=== PATIENT | female | born 1960 | race Two or more races ===

== ENCOUNTER 2020-11-12 23:34 | Emergency (ER) | payer OTHER, SELFPAY ==
[2020-11-12 23:53] VITALS: BP 113/57; PULSE 96; RESP 18; TEMP 36.8; O2SAT 96; BMI 24.5
--- NOTE | 2020-11-13 | ECG_ITS ---
Test Reason : PALPITATIONS Blood Pressure : / mmHG Vent. Rate : 093 BPM Atrial Rate : 093 BPM P-R Int : 140 ms QRS Dur : 072 ms QT Int : 382 ms P-R-T Axes : 055 010 039 degrees QTc Int : 474 ms Normal sinus rhythm Normal ECG When compared to the previous EKG of No significant changes seen Referred By: Janine Cotto Electronically Signed By:TRICIA ROSA MD
--- NOTE | 2020-11-13 01:06 | PC.NURSE ---
per md no need for troponin.
--- NOTE | 2020-11-13 01:06 | ED.GENADULT ---
HPI - General Adult General Chief complaint: General Medical Stated complaint: High Blood Pressure Time Seen by Provider: 11/13/20 00:56 Source: patient and home health clinical supervisor Mode of arrival: ambulatory History of Present Illness HPI narrative: This is a 59-year-old female with history of asthma and presents with palpitations that she states was associated with ?high blood pressure? but denies any associated dizziness, sweating, nausea, or chest pain. She denies any recent travel, this breath, fevers, chills, GI or symptoms. Related Data Previous Rx's Medication Instructions Recorded gabapentin 300 mg capsule 300 mg PO TID #90 cap 06/30/20 risperidone 0.25 mg tablet 0.25 mg PO DAILY #90 tab 06/30/20 lisinopril 40 mg tablet 40 mg PO DAILY #30 tab 07/16/20 loratadine 10 mg tablet 10 mg PO DAILY #30 tab 08/15/20 omeprazole 20 mg capsule,delayed 20 mg PO DAILY #30 cap 08/15/20 release amlodipine 5 mg tablet 5 mg PO DAILY #30 tab 08/21/20 tramadol 50 mg tablet 50 mg PO Q8H PRN 30 Days #90 tab 09/25/20 benztropine 0.5 mg tablet 0.5 mg PO BEDTIME #90 tab 11/01/20 Allergies Allergy/AdvReac Type Severity Reaction Status Date / Time aspirin [ASPIRIN] Allergy Unknown SWELLING Verified 11/12/20 23:53 penicillin V Allergy Unknown swelling Verified 11/12/20 23:53 Penicillins [PENICILLINS] Allergy Unknown SWELLING Verified 11/12/20 23:53 Review of Systems Review of Systems: Pertinent positives and negatives as stated in HPI 10 point review of systems is otherwise negative. [facility] Past Medical History Source: nursing notes reviewed Medical History Polyarthralgia Social History Social History Smoking Status: Never smoker Use of substances other than those prescribed or required for medical reasons: No Advance Directives: No Physical Exam Vital Signs: Vital Signs: Last Vital Signs Temp 98.3 F 11/12/20 23:53 Pulse 87 11/13/20 02:00 Resp 16 11/13/20 02:00 BP 124/64 11/13/20 02:00 Pulse Ox 93 11/13/20 02:00 Body Mass Index 24.5 VITAL SIGNS: Reviewed. GENERAL: Well developed, well nourished, in no acute distress. HEAD: Normocephalic/atraumatic, EYES: PERRLA, EOMI NOSE: Nares patent bilateral OROPHARYNX: no oral lesions noted, posterior pharynx clear NECK: Supple, no adenopathy LUNGS: Normal breath sounds. No adventitious sounds or accessory muscle use. SpO2<96> CARDIOVASCULAR: Regular rate and rhythm without noted murmurs, no JVD or lower extremity edema. ABDOMEN: Soft, non-tender, non-distended with bowel sounds. NEUROLOGIC: Alert and oriented x 4. Course Course Course Narrative: This is a 59-year-old female with history and clinical presentation of palpitations, will evaluate for infection, anemia, arrhythmia. Review of all investigations is negative for any acute findings that may have contributed to patient's sensation of palpations. Although there is a noted leukocytosis this seems to be consistent with prior findings and is not consistent with a left shift, history of fever. The results and findings were discussed with her at bedside and she was discharged home in stable condition with recommendations to follow-up with her primary care provider for re-evaluation and outpatient management as indicated. Medical Decision Making Lab Data Result diagrams: 11/13/20 01:15 11/13/20 01:15 Labs: Lab Results 11/13/20 11/13/20 11/13/20 Range/Units 01:15 01:15 01:15 WBC 16.1 H (4.8-10.8) X10*3/uL RBC 3.67 L (4.20-5.50) X10*6/uL Hgb 13.1 (12.0-16.0) g/dl Hct 35.6 L (37-47) % MCV 97.0 (80-98) fL MCH 35.7 H (27.0-33.0) pg MCHC 36.8 H (31.0-35.0) g/dl RDW 13.2 (11.0-16.0) % Plt Count 284 (160-400) X10*3/uL MPV 9.1 L (9.4-12.3) fL Immature Gran % (Auto) 0.4 (0.0-0.4) % Neut % (Auto) 62.1 (45-73) % Lymph % (Auto) 28.5 (20-40) % [place] % (Auto) 7.1 (2-11) % Eos % (Auto) 1.2 (0-4) % Baso % (Auto) 0.7 (0-2) % Lymph # (Auto) 4.6 (1.2-4.9) X10*3/uL [place] # (Auto) 1.1 (0.1-1.2) X10*3/uL Eos # (Auto) 0.2 (0.0-0.4) X10*3/uL Baso # (Auto) 0.1 (0.0-0.2) X10*3/uL Abs Immat Gran (auto) 0.07 H (0.00-0.03) X10*3/uL Absolute Neuts (auto) 10.0 H (2.0-8.3) X10*3/uL Absolute Nucleated RBC 0.000 (0.0-0.012) X10*3/uL Nucleated RBC % (auto) 0.0 (0.0-0.2) /100WBC Sodium 140 (135-145) mmol/L Potassium 4.0 (3.3-5.1) mmol/L Chloride 104 (96-108) mmol/L Carbon Dioxide 24 (22-29) mmol/L Anion Gap 16 (12-20) BUN 16 (9-16) mg/dL Creatinine 1.02 (0.5-1.4) mg/dL Estim Creat Clear Calc 43.8 Estimated GFR 55 Random Glucose 171 H (60-115) mg/dL Calcium 8.7 (8.4-10.2) mg/dL Total Bilirubin 0.4 (0.0-1.0) mg/dL AST 18 (5-31) U/L ALT 16 (0-31) U/L Alkaline Phosphatase 149 H (39-117) U/L Total Protein 7.6 (6.5-8.0) g/dL Albumin 4.1 (3.5-5.0) g/dL Urine Color YELLOW Urine Appearance CLEAR Urine pH 5.5 (5.0-8.0) Ur Specific [place] >= 1.030 H (1.005-1.025) Urine Protein NEG (NEG-TRACE) MG/DL Urine Glucose (UA) NEG (NEG) MG/DL Urine Ketones NEG (NEG) MG/DL Urine Blood 1+ H (NEG) Urine Nitrite NEG (NEG) Ur Leukocyte Esterase NEG (NEG) Urine RBC 1-4 (0) /HPF Urine WBC 0-2 (0-4) /HPF Ur Squamous Epith Cells 2+ /LPF Urine Bacteria TRACE /LPF Urine Mucus 2+ /LPF ECG Data Attestation: I personally reviewed and interpreted this ECG as follows: Prior ECG tracings: available for review (02/24/2016 no acute changes on comparison.) Interpretation: Normal sinus rhythm, HR-93, no evidence of acute ischemia, WA/QRS/QTC are within normal limits Discharge Plan Discharge Clinical Impression: Heart palpitations Patient Disposition: Home, Self-Care Instructions: Heart Palpitations (ED) Additional Instructions: Reanude todos los medicamentos caseros seg?n lo prescrito. Lydia un seguimiento con owen proveedor de atenci?n primaria llamando al consultorio por la ma?arnulfo y estableciendo dotty chikis para dotty reevaluaci?n. No dude en volver al servicio de urgencias si desarrolla alg?n empeoramiento bisi de gayathri s?ntomas. Prescriptions: No Action gabapentin 300 mg capsule 300 mg PO TID Qty: 90 RF: 6 risperidone 0.25 mg tablet 0.25 mg PO DAILY Qty: 90 RF: 3 lisinopril 40 mg tablet 40 mg PO DAILY Qty: 30 RF: 6 loratadine 10 mg tablet 10 mg PO DAILY Qty: 30 RF: 2 omeprazole 20 mg capsule,delayed release(DR/EC) 20 mg PO DAILY Qty: 30 RF: 2 amlodipine 5 mg tablet 5 mg PO DAILY Qty: 30 RF: 3 tramadol 50 mg tablet 50 mg PO Q8H PRN (Reason: pain) 30 Days Qty: 90 RF: 0 benztropine 0.5 mg tablet 0.5 mg PO BEDTIME Qty: 90 RF: 1 Referrals: Physician,Unknown [Primary Care Provider] - 2 days Print Language: Yakut
[2020-11-13 01:20] LABS: MANUAL DIFF FLAG NO
[2020-11-13 01:21] LABS: Basophils Absolute Auto 0.1 X10*3/uL (0.0-0.2); Basophils Percent Auto 0.7 % (0-2); Eosinophils Absolute Auto 0.2 X10*3/uL (0.0-0.4); Eosinophils Percent Auto 1.2 % (0-4); Hematocrit 35.6 % (37-47); Hemoglobin 13.1 g/dl (12.0-16.0); Imm Gran Abs Auto 0.07 X10*3/uL (0.00-0.03); Imm Gran Pct Auto 0.4 % (0.0-0.4); Lymphocytes Absolute Auto 4.6 X10*3/uL (1.2-4.9); Lymphocytes Percent Auto 28.5 % (20-40); Mean Corpuscular HGB Conc 36.8 g/dl (31.0-35.0); Mean Corpuscular Hemoglobin 35.7 pg (27.0-33.0); Mean Platelet Volume 9.1 fL (9.4-12.3); Monocytes Absolute Auto 1.1 X10*3/uL (0.1-1.2); Monocytes Percent Auto 7.1 % (2-11); Neutrophils Percent Auto 62.1 % (45-73); Platelet Count 284 X10*3/uL (160-400); Red Blood Count 3.67 X10*6/uL (4.20-5.50); Red Cell Distribution Width 13.2 % (11.0-16.0); White Blood Count 16.1 X10*3/uL (4.8-10.8)
[2020-11-13 01:23] LABS: Appearance Urine CLEAR; Color Urine YELLOW; Glucose Urine UA NEG (NEG); Leukocyte Esterase Urine NEG (NEG); Nitrite Urine NEG (NEG); PH 5.5 (5.0-8.0); Specific Gravity - Urine >= 1.030 (1.005-1.025); Urine Blood 1+ (NEG); Urine Ketones NEG (NEG); Urine Protein NEG (NEG-TRACE)
[2020-11-13 01:35] LABS: Bacteria Urine TRACE /LPF; Mucus Urine 2+ /LPF; Squamous Epithelial Cell Urine 2+ /LPF; WBC Urine 0-2 /HPF (0-4)
[2020-11-13 02:00] VITALS: BP 124/64; PULSE 87; RESP 16; O2SAT 93
[2020-11-13 02:29] LABS: Alanine Aminotransferase 16 U/L (0-31); Albumin Level 4.1 g/dL (3.5-5.0); Alkaline Phosphatase 149 U/L (39-117); Anion Gap 16 (12-20); Aspartate Amino Transferase 18 U/L (5-31); Bilirubin Total 0.4 mg/dL (0.0-1.0); Blood Urea Nitrogen 16 mg/dL (9-16); Calcium 8.7 mg/dL (8.4-10.2); Carbon Dioxide 24 mmol/L (22-29); Chloride 104 mmol/L (96-108); Creatinine Clr Calc Pharmacy 43.8; Estimated Glomerular Filt Rate 55; Glucose Random 171 mg/dL (60-115); Sodium 140 mmol/L (135-145); Total Protein 7.6 g/dL (6.5-8.0)
== END 2020-11-13 03:29 | disposition home or self-care (01) ==
PROVIDERS: Emergency Provider Student in an Organized Health Care Education/Training Program
DX: R00.2 Palpitations (principal)
CPT/HCPCS: 36415; 80053; 81001; 85025; 93005; 99283; 99284

== ENCOUNTER 2021-04-25 11:02 | Outpatient (REF) | payer OTHER, SELFPAY ==
[2021-04-25 11:52] LABS: Hematocrit 37.3 % (37-47); Hemoglobin 12.7 g/dl (12.0-16.0); Mean Corpuscular Volume 96.9 fL (80-98); Mean Platelet Volume 9.3 fL (9.4-12.3); Platelet Count 323 X10*3/uL (160-400); Red Blood Count 3.85 X10*6/uL (4.20-5.50); Red Cell Distribution Width 13.2 % (11.0-16.0); White Blood Count 13.5 X10*3/uL (4.8-10.8)
[2021-04-25 12:03] LABS: Estimated Average Glucose 160 mg/dL; Hemoglobin A1c % 7.2 %
[2021-04-25 12:25] LABS: Alanine Aminotransferase 20 U/L (0-31); Albumin Level 4.1 g/dL (3.5-5.0); Alkaline Phosphatase 129 U/L (39-117); Anion Gap 15 (12-20); Aspartate Amino Transferase 18 U/L (5-31); Bilirubin Total 0.3 mg/dL (0.0-1.0); Blood Urea Nitrogen 12 mg/dL (9-16); Calcium 9.3 mg/dL (8.4-10.2); Carbon Dioxide 26 mmol/L (22-29); Chloride 104 mmol/L (96-108); Cholesterol 200 mg/dL; Estimated Glomerular Filt Rate 54; Glucose Fasting 153 mg/dL (60-99); HDL Cholesterol 35 mg/dL; Potassium 4.5 mmol/L (3.3-5.1); Sodium 140 mmol/L (135-145); Total Protein 7.3 g/dL (6.5-8.0); Triglycerides 557 mg/dL
[2021-04-25 12:31] LABS: Creatinine Urine 208.72 mg/dL; Microalbum/Creatinine Ratio Ur 3.8 ug/mg cr
== END 2021-04-25 11:03 | disposition home or self-care (01) ==
LOC: HO.LAB 11:02
PROVIDERS: PCP Internal Medicine; Visit Provider Physician Assistant
DX: Z13.1 Encounter for screening for diabetes mellitus (principal); I10 Essential (primary) hypertension
CPT/HCPCS: 36415; 80053; 80061; 82043; 83036; 85027

== ENCOUNTER → 2021-05-13 08:05 | Outpatient (BNVA) | payer OTHER, SELFPAY | PROVIDERS: PCP Internal Medicine; Referring Provider Internal Medicine; Visit Provider Nurse Practitioner Family | DX: K21.9 Gastro-esophageal reflux disease without esophagitis (principal); Z12.11 Encounter for screening for malignant neoplasm of colon; R14.0 Abdominal distension (gaseous) | CPT/HCPCS: 99202 ==

== ENCOUNTER 2021-05-26 13:36 | Day surgery (SDC) | payer OTHER, SELFPAY ==
--- NOTE | 2021-05-23 12:20 | HO.ANESPROP2 ---
Documented by User: Mireille Cheung NP 05/23/21 12:21 HPI - Anesthesia Eval Consult details Narrative: 60yo F for Upper Endoscopy and Colonoscopy PMF Active Problems Active Problems: All Active Problems (Updated 05/21/21 @ 14:01 by Eunice Bazan RN) Annual physical exam (Acute) Atypical chest pain (Acute) GERD (gastroesophageal reflux disease) (Acute) HTN (hypertension) (Acute) Colon cancer screening (Acute) Breast cancer screening (Acute) Smoker (Acute) Screening for diabetes mellitus (DM) (Acute) COPD (chronic obstructive pulmonary disease) (Acute) Polyarthralgia (Acute) Past Medical History Medical History Allergic rhinitis Back pain COPD (chronic obstructive pulmonary disease) Depression GERD (gastroesophageal reflux disease) HTN (hypertension) Polyarthralgia Smoker Social History Social History (Updated 05/26/21 @ 15:23 by Smitha White MD) Alcohol intake: never Patient Tobacco Use Status: Current everyday Tobacco user Smoked in Last 30 Days: Yes Advance Directives: No Advance Directives Information Provided: Yes Current occupational status: disabled [employer] Allergies Allergy/AdvReac Type Severity Reaction Status Date / Time aspirin [ASPIRIN] Allergy Unknown SWELLING Verified 05/21/21 13:44 Penicillins [PENICILLINS] Allergy Unknown SWELLING Verified 05/21/21 13:44 Home Medications Medication Instructions Recorded Confirmed Last Taken Type fluoxetine 20 mg capsule 20 mg PO DAILY 05/13/21 05/21/21 Unknown History prazosin 1 mg capsule 1 mg PO BEDTIME 05/13/21 05/21/21 Unknown History quetiapine 100 mg tablet 100 mg PO BEDTIME 05/13/21 05/21/21 Unknown History Exam Exam Date and Time: May 23, 2021 1220 Pertinent Lab Results Pertinent Lab Results: Laboratory Tests 04/25/21 04/25/21 11:07 11:07 WBC 13.5 H Hgb 12.7 Hct 37.3 Plt Count 323 Sodium 140 Potassium 4.5 Chloride 104 Carbon Dioxide 26 BUN 12 Creatinine 1.04 Narrative Narrative: EKG 10/2020 Vent. Rate : 093 BPM ? ? Atrial Rate : 093 BPM ?? P-R Int : 140 ms? QRS Dur : 072 ms ? ? QT Int : 382 ms ? ? ? P-R-T Axes : 055 010 039 degrees ?? QTc Int : 474 ms ? Normal sinus rhythm Normal ECG When compared to the previous EKG of No significant changes seen Assessment and Plan Assessment Anesthesia Assessment: Chart Reviewed Documented by User: Smitha White MD 05/26/21 15:26 [facility] Past Medical History Medical History Allergic rhinitis Back pain COPD (chronic obstructive pulmonary disease) Depression GERD (gastroesophageal reflux disease) HTN (hypertension) Polyarthralgia Smoker Family History Family history of problems with anesthesia: No Surgical History History of Problems with Anesthesia: No Social History Social History (Updated 05/26/21 @ 15:23 by Smitha White MD) Alcohol intake: never Patient Tobacco Use Status: Current everyday Tobacco user Smoked in Last 30 Days: Yes Advance Directives: No Advance Directives Information Provided: Yes Current occupational status: disabled Meds Allergies Allergy/AdvReac Type Severity Reaction Status Date / Time aspirin [ASPIRIN] Allergy Unknown SWELLING Verified 05/21/21 13:44 Penicillins [PENICILLINS] Allergy Unknown SWELLING Verified 05/21/21 13:44 Home Medications Medication Instructions Recorded Confirmed Last Taken Type fluoxetine 20 mg capsule 20 mg PO DAILY 05/13/21 05/21/21 Unknown History prazosin 1 mg capsule 1 mg PO BEDTIME 05/13/21 05/21/21 Unknown History quetiapine 100 mg tablet 100 mg PO BEDTIME 05/13/21 05/21/21 Unknown History Exam Height,Weight and Vital Signs: Height 4 ft 11 in Weight 56.699 kg Vital Signs Temp Pulse Resp BP Pulse Ox 05/26/21 14:08 97.5 F 96 20 139/72 96 Airway Mallampati Class: II TM Dist: >3cm Neck ROM: Full Heart: RRR Lungs: CTAB Assessment and Plan Assessment Anesthesia Assessment: Anesthesia Plan Discussed Final Anesthetic Review Family History of Problems with Anesthesia: No History of Problems with Anesthesia: No NPO: Yes ASA Class: III Final Preanesthetic Review: No Changes in Pt Med Stat, Meds/Allgs Chart Reviewed, Consent Obtained/Reviewed and Anes Risks/Benef Reviewed Patient Risk: Intermediate Procedure Risk: Low Assessment/Block/Sedation in SS: Assess/Block/Sedation-SS Anesthetic Plan Anesthetic Plan: MAC: Disposition: Standard PACU
[2021-05-26 13:57] VITALS: BMI 25.2
[2021-05-26 14:08] VITALS: BP 139/72; PULSE 96; RESP 20; TEMP 36.4; O2SAT 96
--- NOTE | 2021-05-26 15:22 | MHC.SHP ---
Pre-Procedural Eval Section A Date of Service: 05/26/21 The patient is an INPATIENT: No Changes since office visit: Yes Patient answered all questions; No Cold of Flu in the past 2 weeks, No New Medical Problems and No Changes in Medication The History & Physical has been completed within 30 days and I have reviewed it.: Yes Section B Chief Complaint: reflux disease, screening Allergies: Allergies Allergy/AdvReac Type Severity Reaction Status Date / Time aspirin [ASPIRIN] Allergy Unknown SWELLING Verified 05/21/21 13:44 Penicillins [PENICILLINS] Allergy Unknown SWELLING Verified 05/21/21 13:44 Plan I have reviewed the history and physical and performed a pertinent physical examination on my patient. No changes have occurred unless specified.
--- NOTE | 2021-05-26 15:25 | P.BOP_ITS ---
Brief Operative Note Date of Service: 05/26/21 Pre-op diagnosis: Colon cancer screening, GERD, postprandial bloating Post-op diagnosis: other (GERD, gastritis, duodenal nodule, colon diverticulosis) Procedure: FLEXIBLE TRANSORAL UPPER GASTROINTESTINAL ENDOSCOPY WITH BIOPSIES AND COLONOSCOPY TILL CECUM WITH BIOPSIES UPPER ENDOSCOPY Consent: Indications for the procedure and potential complications of bleeding, perforation, reaction to medications and missed diagnosis were discussed with the patient and informed consent was obtained. Instrument: Olympus GIF H 190 mid size upper endoscope Monitoring: Vital signs and clinical assessment, continuous EKG monitoring, Pulse oximetry, Carbon Dioxide monitoring and blood pressure monitoring were done throughout the procedure. Procedure: The patient was placed in the left lateral decubitis position and pre-procedure medications were administered and a bite block was placed. The endoscope was inserted into the mouth and advanced under direct vision to the third part of duodenum. A careful inspection was made as the upper endoscope was withdrawn including a retroflexed examination of the proximal stomach; Findings and interventions are described below. Findings: Larynx: Normal Esophagus: GE junction at 34 cms. No esophagitis or Mann's. Stomach: Mild gastric erythema. Biopsies were obtained. Grade 2 flap valve on retroflexed examination of the cardia. Duodenum: Normal bulb. A 1.5 cms benign appearing yellowish nodule in the descending duodenum - biopsies were obtained. Intervention: Biopsies as noted above COLONOSCOPY PROCEDURE NOTE Consent: Indications for the procedure and potential complications of bleeding, perforation, reaction to medications and missed diagnosis were discussed with the patient and informed consent was obtained. Instrument: Olympus PCF H 190 L variable stiffness pediatric colonoscope Monitoring: Vital signs and clinical assessment, intermittent blood pressure monitoring, continuous EKG monitoring, Pulse oximetry and Carbon Dioxide monitoring were done throughout the procedure. Colon withdrawl time was 15 minutes. Procedure: The patient was placed in the left lateral decubitis position and pre-procedure medications were administered. After a digital rectal examination of the ano-rectum, the video colonoscope was inserted into the rectum and advanced through the colon to the cecum. The colonoscope was slowly withdrawn in a retrograde panoramic fashion and the colon mucosa was carefully examined including a retroflexed view of the rectum. Findings and interventions are described below. Procedure Difficulty: : LLQ pressure applied to intubate the transverse colon Findings: Terminal Ileum: Not evaluated Cecum: Normal Ascending Colon: Normal Transverse Colon: Normal Descending Colon: Moderate diverticulosis Sigmoid Colon: Severe diverticulosis with luminal narroing Rectum: Normal Ano-rectum: Normal Colon preparation: Good after some irrigation Impression and Post Procedure Diagnosis: Endoscopy Findings: STOMACH: Gastritis DUODENUM: Normal bulb. A 1.5 cms benign appearing yellowish nodule in the descending duodenum(likely submucosal lipoma) - biopsies were obtained. Biopsied to check for celiac sprue Colonoscopy Findings: No polyps were detected. Random biopsies were obtained to check for microscopic colitis. Moderate diverticulosis seen in the left colon Plan: Await pathology results Patient has an appointment on 06/13/21 in the GI Clinic with Swetha Cook FNP-BC . Repeat Colonoscopy in 10 years if biopsies are normal. Above findings were reviewed with the patient and Gastritis and diverticulosis handouts were given in the discharge area Surgeon: Isaiah Loco MD Anesthesia: MAC (Cornelius Chaney CRNA) Was an Sewing Machine Operator Semiautomatic used for this Procedure?: Yes Sewing Machine Operator Semiautomatic: Caitlin Pham Estimated blood loss (mL): 0 Pathology: other (A. SMALL BOWEL BX'S R/O CELIACS DX B. BX'S DUODENAL NODULE C. GASTRIC ANTRUM BX'S R/O H. PYLORI D. RANDOM COLON BX'S R/O MICROSCOPIC COLITIS) Condition: stable Disposition: PACU
--- NOTE | 2021-05-26 15:52 | W.PM.OPN ---
Operative Note Operative Note Date of Service: 05/26/21 Narrative: Pre-op diagnosis:?Colon cancer screening, GERD, postprandial bloating Post-op diagnosis:?other (GERD, gastritis, duodenal nodule, colon diverticulosis) Procedure:? FLEXIBLE TRANSORAL UPPER GASTROINTESTINAL ENDOSCOPY WITH BIOPSIES AND COLONOSCOPY TILL CECUM WITH BIOPSIES UPPER ENDOSCOPY Consent:?Indications for the procedure and potential complications of bleeding, perforation, reaction to medications and missed diagnosis were discussed with the patient and informed consent was obtained. Instrument:?Olympus GIF H 190 mid size upper endoscope Monitoring: Vital signs and clinical assessment, continuous EKG monitoring, Pulse oximetry, Carbon Dioxide monitoring and blood pressure monitoring were done throughout the procedure. Procedure:?The patient was placed in the left lateral decubitis position and pre-procedure medications were administered and a bite block was placed. The endoscope was inserted into the mouth and advanced under direct vision to the third part of duodenum. A careful inspection was made as the upper endoscope was withdrawn including a retroflexed examination of the proximal stomach; Findings and interventions are described below. Findings: Larynx:? Normal Esophagus:?GE junction at 34 cms. No esophagitis or Mann's. Stomach:?Mild gastric erythema. Biopsies were obtained. Grade 2 flap valve on retroflexed examination of the cardia. Duodenum:?Normal bulb.? A 1.5 cms benign appearing yellowish nodule in the descending duodenum - biopsies were obtained. Intervention:?Biopsies as noted above COLONOSCOPY PROCEDURE NOTE Consent:?Indications for the procedure and potential complications of bleeding, perforation, reaction to medications and missed diagnosis were discussed with the patient and informed consent was obtained. Instrument:?Olympus PCF H 190 L variable stiffness pediatric colonoscope Monitoring:?Vital signs and clinical assessment, intermittent blood pressure monitoring, continuous EKG monitoring, Pulse oximetry and Carbon Dioxide monitoring were done throughout the procedure. Colon withdrawl time was 15 minutes. Procedure:?The patient was placed in the left lateral decubitis position and pre-procedure medications were administered. After a digital rectal examination of the ano-rectum, the video colonoscope was inserted into the rectum and advanced through the colon to the cecum. The colonoscope was slowly withdrawn in a retrograde panoramic fashion and the colon mucosa was carefully examined including a retroflexed view of the rectum. Findings and interventions are described below. Procedure Difficulty:?:? LLQ pressure applied to intubate the transverse colon Findings: Terminal Ileum: Not evaluated Cecum:? Normal Ascending Colon:??Normal Transverse Colon:??Normal Descending Colon:? Moderate diverticulosis Sigmoid Colon:??Severe diverticulosis with luminal narroing Rectum:??Normal Ano-rectum:??Normal Colon preparation:? Good? after some irrigation Impression and Post Procedure Diagnosis: Endoscopy Findings: STOMACH: Gastritis DUODENUM: Normal bulb.? A 1.5 cms benign appearing yellowish nodule in the descending duodenum(likely submucosal lipoma) - biopsies were obtained.? Biopsied to check for celiac sprue Colonoscopy Findings: No polyps were detected. Random biopsies were obtained to check for microscopic colitis. Moderate diverticulosis seen in the left colon Plan: Await pathology results Patient has an appointment on 06/13/21 in the GI Clinic with Swetha Cook FNP-BC . Repeat Colonoscopy in 10 years if biopsies are normal. Above findings were reviewed with the patient and Gastritis and diverticulosis handouts were given in the discharge area Surgeon:?Isaiah Loco MD Anesthesia:?MAC (Cornelius Chaney CRNA) Was an Digital Media Coordinator used for this Procedure?:?Yes Digital Media Coordinator:?Caitlin Pham Estimated blood loss (mL):?0 Pathology:?other (A. SMALL BOWEL BX'S R/O CELIACS DX? B. BX'S DUODENAL NODULE? C. GASTRIC ANTRUM BX'S R/O H. PYLORI? D. RANDOM COLON BX'S R/O MICROSCOPIC COLITIS) Condition:?stable Disposition:?PACU
[2021-05-26 16:30] VITALS: BP 110/53; PULSE 84; RESP 18; TEMP 36.3; O2SAT 100
[2021-05-26 16:45] VITALS: BP 121/93; PULSE 93; RESP 18; TEMP 36.3; O2SAT 99
[2021-05-26 16:58] VITALS: BP 132/73; PULSE 97; RESP 18; TEMP 36.3; O2SAT 99
== END 2021-05-26 17:33 | disposition home or self-care (01) ==
PROVIDERS: PCP Internal Medicine; Visit Provider Internal Medicine Gastroenterology
PROC: (CPT 45380; principal; 2021-05-26 14:20)
DX: Z12.11 Encounter for screening for malignant neoplasm of colon (principal); K57.30 Diverticulosis of large intestine without perforation or abscess without bleeding; K21.9 Gastro-esophageal reflux disease without esophagitis; K29.70 Gastritis, unspecified, without bleeding; K31.89 Other diseases of stomach and duodenum; Z79.899 Other long term (current) drug therapy; Z88.0 Allergy status to penicillin; Z88.6 Allergy status to analgesic agent
CPT/HCPCS: 45380; 43239; 88305; 88342

== ENCOUNTER → 2021-06-13 13:47 | Outpatient (BNVA) | payer OTHER, SELFPAY | PROVIDERS: PCP Internal Medicine; Referring Provider Internal Medicine; Visit Provider Nurse Practitioner Family | DX: K21.9 Gastro-esophageal reflux disease without esophagitis (principal); K57.90 Diverticulosis of intestine, part unspecified, without perforation or abscess without bleeding; Z98.890 Other specified postprocedural states | CPT/HCPCS: 99212 ==

== ENCOUNTER 2021-10-16 11:37 | Outpatient (REF) | payer OTHER, SELFPAY ==
--- NOTE | ~2021-10-16 | XR_ITS ---
EXAMINATION: XR HIP, RIGHT CLINICAL INFORMATION: Pain in right hip. COMPARISON: None TECHNIQUE: Two views of the right hip. FINDINGS: The right hip joint space is maintained normal. No acute fracture, dislocation or lytic process seen. No bony erosive changes. The soft tissues are normal. XR/XR hip RT min 2V IMPRESSION: Unremarkable right hip exam.
[2021-10-16 11:57] LABS: MANUAL DIFF FLAG NO
[2021-10-16 12:07] LABS: Basophils Absolute Auto 0.1 X10*3/uL (0.0-0.2); Basophils Percent Auto 0.7 % (0-2); Eosinophils Absolute Auto 0.1 X10*3/uL (0.0-0.4); Eosinophils Percent Auto 1.3 % (0-4); Hemoglobin 13.1 g/dl (12.0-16.0); Imm Gran Abs Auto 0.04 X10*3/uL (0.00-0.03); Imm Gran Pct Auto 0.4 % (0.0-0.4); Lymphocytes Absolute Auto 3.7 X10*3/uL (1.2-4.9); Lymphocytes Percent Auto 33.7 % (20-40); Mean Corpuscular HGB Conc 34.5 g/dl (31.0-35.0); Mean Corpuscular Hemoglobin 32.9 pg (27.0-33.0); Mean Corpuscular Volume 95.5 fL (80.0-98.0); Mean Platelet Volume 9.4 fL (9.4-12.3); Monocytes Absolute Auto 0.7 X10*3/uL (0.1-1.2); Monocytes Percent Auto 6.7 % (2-11); Neutrophils Absolute Auto 6.3 x10*3/uL (2.0-8.3); Neutrophils Percent Auto 57.2 % (45-73); Platelet Count 318 X10*3/uL (160-400); Red Blood Count 3.98 X10*6/uL (4.20-5.50); Red Cell Distribution Width 12.4 % (11.0-16.0)
[2021-10-16 12:35] LABS: Alanine Aminotransferase 22 U/L (0-31); Albumin Level 4.1 g/dL (3.5-5.0); Alkaline Phosphatase 139 U/L (39-117); Anion Gap 12 (12-20); Aspartate Amino Transferase 18 U/L (5-31); Bilirubin Total 0.2 mg/dL (0.0-1.0); Blood Urea Nitrogen 18 mg/dL (9-16); Calcium 9.5 mg/dL (8.4-10.2); Carbon Dioxide 26 mmol/L (22-29); Chloride 105 mmol/L (96-108); Cholesterol 182 mg/dL; Estimated Glomerular Filt Rate 52; Glucose Fasting 295 mg/dL (60-99); HDL Cholesterol 35 mg/dL; LDL Cholesterol Calculated 87 mg/dl; Potassium 4.1 mmol/L (3.3-5.1); Sodium 139 mmol/L (135-145); Total Protein 7.4 g/dL (6.5-8.0); Triglycerides 304 mg/dL
[2021-10-21 12:12] LABS: Vitamin D 25-OH, D2 <4 ng/mL; Vitamin D 25-OH, D3 12 ng/mL; Vitamin D 25-OH, Total 12 ng/mL (30-100)
== END 2021-10-16 11:38 | disposition home or self-care (01) ==
LOC: HO.XRAY 11:37
PROVIDERS: PCP Internal Medicine; Visit Provider Internal Medicine
DX: M25.551 Pain in right hip (principal); E78.1 Pure hyperglyceridemia; J44.9 Chronic obstructive pulmonary disease, unspecified; E55.9 Vitamin D deficiency, unspecified; E78.5 Hyperlipidemia, unspecified
CPT/HCPCS: 36415; 73502; 80053; 80061; 82306; 85025

== ENCOUNTER 2022-03-27 09:09 | Outpatient (REF) | payer OTHER, SELFPAY ==
--- NOTE | ~2022-03-27 | MM_ITS ---
EXAMINATION: MM SCREENING DIGITAL BREAST TOMOSYNTHESIS, BILATERAL CLINICAL INFORMATION: Screening. Asymptomatic. The lifetime risk of breast cancer based on the Tyrer-Cuzick Model is 9.5%. COMPARISON: Mammography: 05/05/2017 and studies dating back to 04/24/2015. TECHNIQUE: Digital breast tomosynthesis was performed in both the craniocaudal and mediolateral oblique views along with computer-aided detection (CAD). Synthesized 2D images were generated from the tomosynthesis. FINDINGS: There are scattered areas of fibroglandular density (ACR BI-RADS breast composition Category b). There is a stable parenchymal pattern of the right breast with no new abnormal dominant mass or suspicious grouping of microcalcifications. Within the central aspect of the left breast on the craniocaudal view, there is a circumscribed 7 x 4 mm density lying approximately 5 cm from the nipple for which spot compression view and rolled craniocaudal views are recommended. I do not see a correlate on the mediolateral oblique projection; however, by tomosynthesis this is seen to lie in the inferior aspect of the breast and there is dense breast parenchyma in this location which could be masking a density. MM/MM tomosynthesis screening BI IMPRESSION: Density central aspect of the left breast on craniocaudal view for which spot compression view and rolled craniocaudal views are recommended. ASSESSMENT: BI-RADS 0: Incomplete - Need Additional Imaging Evaluation RECOMMENDATION: 1. Additional views of the left breast. 2. Targeted ultrasound, if warranted, after review of the additional views. 3. Radiology department staff will contact the patient for additional imaging. This patient's information was entered into a reminder system with a target due date for their next mammogram.
[2022-03-27 09:36] LABS: MANUAL DIFF FLAG NO
[2022-03-27 11:01] LABS: Basophils Absolute Auto 0.1 X10*3/uL (0.0-0.2); Basophils Percent Auto 0.9 % (0-2); Eosinophils Absolute Auto 0.2 X10*3/uL (0.0-0.4); Eosinophils Percent Auto 2.2 % (0-4); Hematocrit 36.4 % (37.0-47.0); Hemoglobin 12.1 g/dl (12.0-16.0); Imm Gran Abs Auto 0.04 X10*3/uL (0.00-0.03); Imm Gran Pct Auto 0.4 % (0.0-0.4); Lymphocytes Absolute Auto 3.6 X10*3/uL (1.2-4.9); Lymphocytes Percent Auto 33.1 % (20-40); Mean Corpuscular HGB Conc 33.2 g/dl (31.0-35.0); Mean Corpuscular Hemoglobin 32.7 pg (27.0-33.0); Mean Corpuscular Volume 98.4 fL (80.0-98.0); Mean Platelet Volume 9.8 fL (9.4-12.3); Monocytes Absolute Auto 0.8 X10*3/uL (0.1-1.2); Monocytes Percent Auto 7.6 % (2-11); Neutrophils Percent Auto 55.8 % (45-73); Platelet Count 351 X10*3/uL (160-400); Red Cell Distribution Width 12.9 % (11.0-16.0); White Blood Count 10.8 X10*3/uL (4.8-10.8)
[2022-03-27 11:25] LABS: Alanine Aminotransferase 23 U/L (0-31); Albumin Level 4.2 g/dL (3.5-5.0); Alkaline Phosphatase 87 U/L (39-117); Anion Gap 15 (12-20); Aspartate Amino Transferase 17 U/L (5-31); Bilirubin Total 0.2 mg/dL (0.0-1.0); Blood Urea Nitrogen 19 mg/dL (9-16); Calcium 8.7 mg/dL (8.4-10.2); Carbon Dioxide 25 mmol/L (22-29); Chloride 106 mmol/L (96-108); Cholesterol 171 mg/dL; Estimated Glomerular Filt Rate > 60; Glucose Fasting 174 mg/dL (60-99); HDL Cholesterol 34 mg/dL; LDL Cholesterol Calculated 96 mg/dl; Potassium 4.3 mmol/L (3.3-5.1); Sodium 142 mmol/L (135-145); Triglycerides 208 mg/dL
[2022-03-27 11:38] LABS: Vitamin D 25-OH Total 27.8 ng/mL (>30)
[2022-03-27 12:17] LABS: Creatinine Urine 192.61 mg/dL; Microalbum/Creatinine Ratio Ur 5.1 ug/mg cr
== END 2022-03-27 09:10 | disposition home or self-care (01) ==
LOC: HO.MAMMO 09:09
PROVIDERS: PCP Internal Medicine; Visit Provider Internal Medicine
DX: Z12.31 Encounter for screening mammogram for malignant neoplasm of breast (principal); E11.9 Type 2 diabetes mellitus without complications; E55.9 Vitamin D deficiency, unspecified; D64.9 Anemia, unspecified; K21.9 Gastro-esophageal reflux disease without esophagitis; E78.5 Hyperlipidemia, unspecified
CPT/HCPCS: 36415; 77063; 77067; 80053; 80061; 82043; 82306; 85025

== ENCOUNTER 2022-04-22 13:38 | Outpatient (REF) | payer OTHER, SELFPAY ==
--- NOTE | ~2022-04-22 | MM_ITS ---
EXAMINATION: MM DIAGNOSTIC DIGITAL BREAST TOMOSYNTHESIS, LEFT CLINICAL INFORMATION: Density seen central aspect left breast on craniocaudal view. COMPARISON: Mammography: 10/16/2021 and studies dating back to 04/24/2015. TECHNIQUE: Digital breast tomosynthesis is performed. 2D images are generated from the tomosynthesis. The following views are obtained: Spot compression left craniocaudal view as well as medial and lateral rolled craniocaudal views. FINDINGS: There are scattered areas of fibroglandular density (ACR BI-RADS breast composition Category B). There is persistence of an approximately 6 x 4 mm circumscribed density with question lobulation related to possible intramammary lymph node. Recommend 6-month followup mammography to ensure stability. Results are provided to the patient at time of visit by the technologist. MM/MM tomosynthesis added views L IMPRESSION: Left breast circumscribed density question representing intramammary lymph node for which 6 month followup left breast mammogram is suggested. ASSESSMENT: BI-RADS 3: Probably Benign RECOMMENDATION: Diagnostic mammography in 6 months. This patient's information was entered into a reminder system with a target due date for their next mammogram.
== END 2022-04-22 13:39 | disposition home or self-care (01) ==
LOC: HO.MAMMO 13:38
PROVIDERS: Visit Provider Internal Medicine
DX: R92.2 Inconclusive mammogram (principal)
CPT/HCPCS: 77061; 77065

== ENCOUNTER 2022-05-12 09:52 | Outpatient (REF) | payer OTHER, SELFPAY ==
--- NOTE | ~2022-05-12 | US_ITS ---
EXAMINATION: US ABDOMEN COMPLETE CLINICAL INFORMATION: Right upper quadrant pain. COMPARISON: None TECHNIQUE: Real-time imaging of the abdominal viscera. FINDINGS: PANCREAS: No abnormalities detected. ABDOMINAL AORTA: Atherosclerotic changes are seen without aneurysm. INFERIOR VENA CAVA: Visualized portions are normal. LIVER: Liver is enlarged, especially the left lobe The liver contour is normal. There is diffuse increased liver parenchymal echogenicity, consistent with hepatic steatosis. No focal hepatic lesion. There is no intrahepatic biliary duct dilatation seen. GALLBLADDER: Normal. The gallbladder is physiologically distended without evidence of stones, sludge, polyps, wall thickening or pericholecystic fluid. COMMON BILE DUCT: Normal in caliber measuring 0.8 cm in diameter. RIGHT KIDNEY: No hydronephrosis or renal calculi. The kidney measures 10.6 cm in maximum dimension. LEFT KIDNEY: Normal. No hydronephrosis. No renal calculi or focal parenchymal lesions. The kidney measures 9.1 cm in maximum dimension. SPLEEN: Normal. The spleen measures 8.8 cm in maximum dimension. FREE FLUID: None. US/US abdomen complete IMPRESSION: Enlarged fatty liver.
== END 2022-05-12 09:53 | disposition home or self-care (01) ==
LOC: HO.US 09:52
PROVIDERS: Visit Provider Internal Medicine
DX: R10.11 Right upper quadrant pain (principal)
CPT/HCPCS: 76700

== ENCOUNTER 2022-10-16 13:23 | Outpatient (REF) | payer OTHER, SELFPAY ==
--- NOTE | ~2022-10-16 | MM_ITS ---
EXAMINATION: MM DIAGNOSTIC DIGITAL BREAST TOMOSYNTHESIS, LEFT CLINICAL INFORMATION: Short interval follow-up probable benign faint density lower central left breast. Family history breast cancer, daughter. The lifetime risk of breast cancer based on the Tyrer-Cuzick Model is 10%. COMPARISON: Mammography: 04/22/2022, 03/27/2022 (BI-RADS 0); outside mammography 05/05/2017 and 04/30/2016 ([facility]). TECHNIQUE: Digital breast tomosynthesis is performed in both the craniocaudal and mediolateral oblique views along with computer-aided detection (CAD). Synthesized 2D images are generated from the tomosynthesis. FINDINGS: There are scattered areas of fibroglandular density (ACR BI-RADS breast composition Category b). The parenchymal pattern is similar to prior studies. There is no developing density or interval mass or architectural abnormality. The finding for follow-up is not appreciated. The axilla and skin contours are unremarkable. Results are provided to the patient at time of visit by the technologist. MM/MM tomosynthesis diagnostic LT IMPRESSION: No significant changes from prior studies. ASSESSMENT: BI-RADS 2: Benign RECOMMENDATION: Routine annual mammography screening. This patient's information was entered into a reminder system with a target due date for their next mammogram.
== END 2022-10-16 13:24 | disposition home or self-care (01) ==
LOC: HO.MAMMO 13:23
PROVIDERS: PCP Internal Medicine; Visit Provider Internal Medicine
DX: R92.2 Inconclusive mammogram (principal)
CPT/HCPCS: 77061; 77065

== ENCOUNTER 2022-12-08 11:14 | Outpatient (REF) | payer OTHER, SELFPAY ==
[2022-12-08 12:36] LABS: Alanine Aminotransferase 15 U/L (0-31); Albumin Level 3.9 g/dL (3.5-5.0); Alkaline Phosphatase 74 U/L (39-117); Anion Gap 12 (12-20); Aspartate Amino Transferase 16 U/L (5-31); Bilirubin Total 0.4 mg/dL (0.0-1.0); Blood Urea Nitrogen 17 mg/dL (9-16); Calcium 9.6 mg/dL (8.4-10.2); Carbon Dioxide 27 mmol/L (22-29); Chloride 107 mmol/L (96-108); Cholesterol 174 mg/dL; Estimated Glomerular Filt Rate > 60; Glucose Fasting 120 mg/dL (60-99); HDL Cholesterol 48 mg/dL; LDL Cholesterol Calculated 111 mg/dl; Sodium 142 mmol/L (135-145); Total Protein 6.6 g/dL (6.5-8.0); Triglycerides 75 mg/dL
[2022-12-08 12:52] LABS: Vitamin D 25-OH Total 43.9 ng/mL (>30)
[2022-12-08 13:59] LABS: Creatinine Urine 83.89 mg/dL; Microalbum/Creatinine Ratio Ur 8.3 ug/mg cr
== END 2022-12-08 11:15 | disposition home or self-care (01) ==
LOC: HO.LAB 11:14
PROVIDERS: PCP Internal Medicine; Visit Provider Internal Medicine
DX: E78.5 Hyperlipidemia, unspecified (principal); E55.9 Vitamin D deficiency, unspecified; E11.9 Type 2 diabetes mellitus without complications
CPT/HCPCS: 36415; 80053; 80061; 82043; 82306

== ENCOUNTER 2023-03-29 14:09 | Outpatient (AMB) | payer OTHER, SELFPAY ==
--- NOTE | 2023-03-29 14:37 | A.OFFPC_ITS ---
Vital Signs 03/29/23 14:39 Height 4 ft 11 in Weight 121 lb BMI 24.4 BP 136/72 Blood Pressure Location Lt brachial Position Sitting Intake Visit Reasons: Annual Exam Intake Note: Patient here for a physical exam Home Support Worker Required: No Accompanied by: Significant Other Allergies aspirin [ASPIRIN] Allergy (Intermediate, Verified 03/29/23 15:28) SWELLING Penicillins [PENICILLINS] Allergy (Intermediate, Verified 03/29/23 15:28) SWELLING Medication List - Last Reconciled 03/29/23 by Caitlin Mcneill MD albuterol sulfate 90 mcg/actuation 1 inh inhalation QID PRN 30 days NS amlodipine 5 mg PO DAILY 90 days benztropine 0.5 mg PO BEDTIME blood sugar diagnostic (FreeStyle Lite Strips) Use 1 test strip once a day blood-glucose meter (FreeStyle Lite Meter kit) As directed cholecalciferol (vitamin D3) 25 mcg PO DAILY 90 days fenofibrate 54 mg PO DAILY 90 days fluoxetine 20 mg PO DAILY fluticasone propionate 220 mcg/actuation (Flovent HFA) 1 inh PO BID gabapentin 300 mg PO TID 90 days lancets (FreeStyle Lancets) Use 1 lancet once a day lisinopril 40 mg PO DAILY loratadine 10 mg PO DAILY metformin 500 mg PO DAILY 90 days methylcellulose (laxative) (Citrucel) 500 mg PO DAILY omeprazole 20 mg PO DAILY pioglitazone 15 mg PO DAILY 90 days prazosin 1 mg PO BEDTIME quetiapine 100 mg PO BEDTIME risperidone 0.25 mg PO DAILY sennosides (Natural Senna Laxative) 8.6 mg PO BEDTIME tramadol 50 mg PO Q8H PRN 30 days Tobacco use date assessed: 03/29/23 Fall risk assessment: No Falls in past year Last assessed Fall Risk: 03/29/23 Dental Screening Dental Screen Date: 03/29/23 Did you have a dental visit in the last 12 months?: Yes Did you have a dental problem in the last 6 months where you did not have access to dental care?: No Was dental information given to patient?: Patient has dentist HPI HPI Comments History of Present Illness Details This is a 62-year-old female with diabetes mellitus type 2, mild recurrent major depression and COPD that comes for her physical exam accompanied by . Depression stable with medications. A1c within goal. COPD well controlled with longstanding inhaler. She was advised to stop smoking. Last colonoscopy was 2020. Repeated mammogram will be done tomorrow. No need for Pap smears due to hysterectomy. PFSH Medical History Allergic rhinitis Back pain COPD (chronic obstructive pulmonary disease) Depression Diabetes mellitus GERD (gastroesophageal reflux disease) HTN (hypertension) Hypertriglyceridemia Impaired glucose tolerance Mild recurrent major depression Polyarthralgia Right hip pain Smoker Surgical History (Updated 03/29/23 @ 15:32 by Caitlin Mcneill MD) History of total abdominal hysterectomy No pertinent past surgical history Family History Mother No problems noted. Father No problems noted. Social History Housing: Apartment Alcohol intake: never Patient Tobacco Use Status: Current everyday Tobacco user Tobacco use type: Cigarette Cigarettes Per Day: 4 e-Cigarette/Vaping Use: Currently Using Second Hand Smoke Exposure: No service: No Current occupational status: disabled Cognitive needs: No Hearing needs: No Vision needs: Yes Questionnaire PHQ-9 Over the last 2 weeks, how often have you been bothered by any of the following problems? 1. Little interest or pleasure in doing things: not at all 2. Feeling down, depressed, or hopeless: several days 3. Trouble falling or staying asleep, or sleeping too much: not at all 4. Feeling tired or having little energy: not at all 5. Poor appetite or overeating: not at all 6. Feeling bad about yourself - or that you are a failure or have let yourself or your family down: not at all 7. Trouble concentrating on things, such as reading the newspaper or watching television: not at all 8. Moving or speaking so slowly that other people could have noticed. Or the opposite - being so fidgety or restless that you have been moving around a lot more than usual: not at all 9. Thoughts that you would be better off or of hurting yourself in some way: not at all Total score: 1 Depression Screening Interpretation: Negative 39493 - PHQ-9 Billing: Yes Source: Developed by Drs. Seven White, Aaliyah Buckner, Donald Archibald and colleagues, with an educational [place] from [employer]. Thrive Questionnaire Date Thrive assessed: 03/29/23 I am a: Patient What is your living situation today?: I have a steady place to live Within the past 12 months, did the food you bought not last and you didn't have the money to get more?: Never true Within the past 12 months, did you worry whether your food would run out before you got money to buy more?: Never true Do you have trouble paying for medicines?: No Do you have trouble getting transportation to medical appointments?: No Do you have trouble paying your heating and electricity bill?: No Do you have trouble taking care of your child, family member or friend?: No Do you have trouble with day-to-day activities such as bathing, preparing meals, shopping, managing finances, etc.?: No Are you currently unemployed and looking for a job?: No Are you interested in more education?: No Please select the resources that you would like help with: None Currently or been in a relationship where the following occur: no concerns reported AUDIT C Alcohol Use Questionnaire (AUDIT-C) 1. How often do you have a drink containing alcohol?: Never Total Score: 0 YOSEPH-7 AMB Questionnaire YOSEPH-7 Date YOSEPH - 7 assessed: 03/29/23 Feeling nervous, anxious, or on edge: 1 = Several days Not being able to stop or control worryin = Not at all Worrying too much about different things: 0 = Not at all Trouble relaxin = Not at all Being so restless that it is hard to sit still: 0 = Not at all Becoming easily annoyed or irritable: 0 = Not at all Feeling afraid as if something awful might happen: 0 = Not at all Total YOSEPH-7 score (0-4 normal; 5-9 mild; 10-14 moderate; 15-21 severe): 1 Source: Developed by Drs. Seven White, Aaliyah Buckner, Donald Archibald and colleagues, with an educational [place] from [employer]. YOSEPH-7 Assessment Billing YOSEPH-7 Assessment Tool: YOSEPH-7 Assessment 89486 Review of Systems Const All systems reviewed & are unremarkable except as noted in HPI and below Eyes Reports no additional complaints, Denies change in vision and Denies other visual disturbances Card Denies chest pain at rest, Denies chest pain with activity, Denies edema, Denies irregular heart rhythm, Denies claudication, Denies dyspnea, Denies dyspnea on exertion, Denies orthopnea, Denies paroxysmal nocturnal dyspnea and Denies slow heart rate Resp Denies cough, Denies dyspnea and Denies dyspnea on exertion GI Denies abdominal pain, Denies change in bowel habits, Denies excessive flatus, Denies nausea and Denies vomiting Denies urinary incontinence, Denies urinary hesitancy and Denies urinary urgency Musc Denies abnormal gait, Denies atrophy, Denies deformity and Denies limited range of motion Skin/Breast Denies bleeding lesions, Denies changing lesions and Denies rash Neuro Denies abnormal gait and Denies lack of coordination Physical exam (Primary Care) Vital Signs: Last Vital Signs BP 136/72 03/29/23 14:39 BMI result Body Mass Index 24.4 Tobacco/Smoking Status: Tobacco use Status Tobacco use date assessed 03/29/23 03/29/23 14:46 Patient Tobacco Use Status Current everyday Tobacco 03/29/23 14:39 Tobacco use type Cigarette 03/29/23 14:39 e-Cigarette/Vaping Use Currently Using 03/29/23 14:46 PHQ-9: PHQ-9 Score PHQ-9: Total score 1 03/29/23 14:39 Depression Screening Interpretation: Negative Thrive Assessment: Date of Thrive Assessment Date Thrive assessed 03/29/23 03/29/23 14:39 Currently or been in a relationship where the following occur: no concerns reported Const Orientation/consciousness: patient oriented x3 [facility] Head: Yes normal to inspection, Yes normocephalic and Yes atraumatic Ears: external ears normal Eyes General: appearance normal, both eyes and all related structures Eyelids: Yes eyelids normal Conjunctivae: conjunctivae normal Neck Neck: Yes normal visual inspection and Yes supple Resp Effort & Inspection: normal respiratory effort Auscultation: clear to auscultation bilaterally Cardio Jugular venous distension: no JVD Rate: regular rate Rhythm: regular rhythm Heart sounds: S1 normal heart sound present and S2 normal heart sound present GI Inspection: Yes normal to inspection Palpation (GI): Soft to palpation and nontender Auscultation: normal bowel sounds Skin General skin exam: no rashes or lesions noted Neuro General: patient oriented x3 and no focal motor deficits Extrem General: Yes full ROM Psych Appearance: grossly normal Results AMB Hemoglobin A1c AMB Hemoglobin A1c 6.3 % Last Edit by ANDREW Fleming on 03/29/23 14:5 0 Results Reviewed Results Reviewed: Laboratory Last Values Hgb A1c (Clinic) 6.3 % (4.0-6.0) H 03/29/23 14:49 Assessment and Plan Assessment & Plan (1) Physical exam: Code(s): Z00.00 - Encounter for general adult medical examination without abnormal findings Plan: Repeat in a year (2) Diabetes mellitus: Code(s): E11.9 - Type 2 diabetes mellitus without complications Plan: Continue metformin. A1c goal is equal or less than 7%. (3) COPD (chronic obstructive pulmonary disease): Code(s): J44.9 - Chronic obstructive pulmonary disease, unspecified Plan: Continue longstanding inhaler. (4) Mild recurrent major depression: Code(s): F33.0 - Major depressive disorder, recurrent, mild Plan: Continue fluoxetine Orders: Orders Comprehensive [place]. Panel Fast Today E11.9 - Type 2 diabetes mellitus without complications Lipid Panel Today E78.5 - Hyperlipidemia, unspecified Microalbumin, Random (w Creat) Today E11.9 - Type 2 diabetes mellitus without complications AMB Hemoglobin A1c Today E11.9 - Type 2 diabetes mellitus without complications Coding Level of Care Code Est Pt Prev Care 40-64y([id number]) Diagnoses Physical exam Z00.00 Diabetes mellitus E11.9 COPD (chronic obstructive pulmonary disease) J44.9 Mild recurrent major depression F33.0 Additional Codes YOSEPH-7 Assessment Billing - YOSEPH-7 Assessment Tool: YOSEPH-7 Assessment [id number] ([id number]) Time Spent (min) 35
[2023-03-29 14:39] VITALS: BP 136/72; BMI 24.4
== END 2023-03-29 15:40 | disposition home or self-care (01) ==
PROVIDERS: PCP Internal Medicine; Visit Provider Internal Medicine
DX: Z00.00 Encounter for general adult medical examination without abnormal findings (principal); E11.9 Type 2 diabetes mellitus without complications; J44.9 Chronic obstructive pulmonary disease, unspecified; F33.0 Major depressive disorder, recurrent, mild
CPT/HCPCS: 83036; 99396

== ENCOUNTER 2023-03-30 12:25 | Outpatient (REF) | payer OTHER, SELFPAY ==
--- NOTE | ~2023-03-30 | MM_ITS ---
EXAMINATION: MM SCREENING DIGITAL BREAST TOMOSYNTHESIS, BILATERAL CLINICAL INFORMATION: Screening. Asymptomatic. The lifetime risk of breast cancer based on the Tyrer-Cuzick Model is 7.7%. COMPARISON: Mammography: This study is compared with prior exams dating back to 2017. TECHNIQUE: Digital breast tomosynthesis is performed in both the craniocaudal and mediolateral oblique views along with computer-aided detection (CAD). Synthesized 2D images are generated from the tomosynthesis. FINDINGS: There are scattered areas of fibroglandular density (ACR BI-RADS breast composition Category b). There are no significant masses, abnormal calcifications, or other abnormalities. MM/MM tomosynthesis screening BI IMPRESSION: No mammographic evidence of malignancy. ASSESSMENT: BI-RADS BI-RADS 1 - Negative RECOMMENDATION: Routine annual mammography screening. 1 year F/U This examination should not preclude the clinical evaluation of a suspicious palpable abnormality. This patient's information was entered into a reminder system with a target due date for their next mammogram.
== END 2023-03-30 12:26 | disposition home or self-care (01) ==
LOC: HO.MAMMO 12:25
PROVIDERS: PCP Internal Medicine; Visit Provider Internal Medicine
DX: Z12.31 Encounter for screening mammogram for malignant neoplasm of breast (principal)
CPT/HCPCS: 77063; 77067

== ENCOUNTER → 2023-03-30 13:00 | Outpatient (BNV) | payer OTHER, SELFPAY | PROVIDERS: PCP Internal Medicine; Visit Provider Radiology Diagnostic Radiology | DX: Z12.31 Encounter for screening mammogram for malignant neoplasm of breast (principal) | CPT/HCPCS: 77063; 77067 ==

== ENCOUNTER 2024-03-30 12:19 | Outpatient (AMB) | payer MEDICARE, MEDICAID, SELFPAY ==
[2024-03-30 12:29] VITALS: BP 120/72; BMI 22.2
--- NOTE | 2024-03-30 12:29 | A.OFFPC_ITS ---
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 Accompanied by: Self / Same As Patient Allergies aspirin [ASPIRIN] Allergy (Intermediate, Verified 03/30/24 12:54) SWELLING Penicillins [PENICILLINS] Allergy (Intermediate, Verified 03/30/24 12:54) SWELLING Medication List - Last Reconciled 03/30/24 by Caitlin Mcneill MD albuterol sulfate 90 mcg/actuation 1 inh inhalation QID PRN 30 days NS amlodipine 5 mg PO DAILY 90 days benztropine 0.5 mg PO BEDTIME blood sugar diagnostic (FreeStyle Lite Strips) Use 1 test strip once a day blood-glucose meter (FreeStyle Lite Meter kit) As directed cholecalciferol (vitamin D3) 25 mcg PO DAILY 90 days fenofibrate 54 mg PO DAILY 90 days fluoxetine 20 mg PO DAILY 90 days fluticasone propionate 220 mcg/actuation (Flovent HFA) 1 inh PO BID gabapentin 300 mg PO TID 90 days lancets (FreeStyle Lancets) Use 1 lancet once a day lisinopril 40 mg PO DAILY loratadine 10 mg PO DAILY metformin 500 mg PO DAILY 90 days methylcellulose (laxative) (Citrucel) 500 mg PO DAILY omeprazole 20 mg PO DAILY pioglitazone 15 mg PO DAILY 90 days prazosin 1 mg PO BEDTIME quetiapine 100 mg PO BEDTIME risperidone 0.25 mg PO DAILY sennosides (Natural Senna Laxative) 8.6 mg PO BEDTIME tramadol 50 mg PO Q8H PRN 30 days Ventolin HFA 90 mcg/actuation (albuterol sulfate) 2 puffs inhalation Q6H PRN 30 days NS Tobacco use date assessed: 03/30/24 Fall risk assessment: No Falls in past year Last assessed Fall Risk: 03/30/24 Dental Screening Dental Screen Date: 03/30/24 Did you have a dental visit in the last 12 months?: Yes Did you have a dental problem in the last 6 months where you did not have access to dental care?: No Was dental information given to patient?: Patient has dentist HPI HPI Comments History of Present Illness Details This is a 63-year-old female with diabetes mellitus type 2, mild recurrent major depression and COPD that comes for her physical exam. A1c within goal. Last diabetic eye exam was less than a year ago. Depression stable with medications and this is follow by Psychiatry. COPD well controlled with long-acting inhaler. Use rescue inhaler as needed. Mammogram done less than a year ago was normal. Colonoscopy done 2020. No need for Pap smear due to hysterectomy. Stopped smoking 20 days ago. No acute complaints. [facility] Medical History (Updated 03/30/24 @ 13:29 by Caitlin Mcneill MD) COPD (chronic obstructive pulmonary disease) Diabetes mellitus Right hip pain Mild recurrent major depression Hypertriglyceridemia Impaired glucose tolerance Back pain COPD (chronic obstructive pulmonary disease) Smoker Allergic rhinitis Depression GERD (gastroesophageal reflux disease) HTN (hypertension) Polyarthralgia Surgical History History of total abdominal hysterectomy No pertinent past surgical history Family History Mother No problems noted. Father No problems noted. Social History (Updated 03/30/24 @ 12:59 by Caitlin Mcneill MD) Housing: Apartment Alcohol intake: never Patient Tobacco Use Status: Former Tobacco user Tobacco use type: Cigarette Cigarettes Per Day: 4 e-Cigarette/Vaping Use: Currently Using Second Hand Smoke Exposure: No service: No Current occupational status: disabled Cognitive needs: No Hearing needs: No Vision needs: Yes Questionnaire PHQ-9 Over the last 2 weeks, how often have you been bothered by any of the following problems? 1. Little interest or pleasure in doing things: not at all 2. Feeling down, depressed, or hopeless: several days 3. Trouble falling or staying asleep, or sleeping too much: not at all 4. Feeling tired or having little energy: several days 5. Poor appetite or overeating: more than half the days 6. Feeling bad about yourself - or that you are a failure or have let yourself or your family down: not at all 7. Trouble concentrating on things, such as reading the newspaper or watching television: not at all 8. Moving or speaking so slowly that other people could have noticed. Or the opposite - being so fidgety or restless that you have been moving around a lot more than usual: not at all 9. Thoughts that you would be better off or of hurting yourself in some way: not at all Total score: 4 Depression Screening Interpretation: Positive Depression Screening Follow-up: Existing condition, In treatment, Community Mental Health Worker F/U and Follow- up Visit Requested Depression Screening Done: Yes 35246 - PHQ-9 Billing: Yes Source: Developed by Drs. Seven White, Aaliyah Buckner, Donald Archibald and colleagues, with an educational [place] from [employer] Thrive Questionnaire Date Thrive assessed: 03/30/24 I am a: Patient What is your living situation today?: I have a steady place to live Within the past 12 months, did the food you bought not last and you didn't have the money to get more?: Never true Within the past 12 months, did you worry whether your food would run out before you got money to buy more?: Never true Do you have trouble paying for medicines?: No Do you have trouble getting transportation to medical appointments?: No Do you have trouble paying your heating and electricity bill?: No Do you have trouble taking care of your child, family member or friend?: No Do you have trouble with day-to-day activities such as bathing, preparing meals, shopping, managing finances, etc.?: No Are you currently unemployed and looking for a job?: No Are you interested in more education?: No Please select the resources that you would like help with: None Currently or been in a relationship where the following occur: No concerns reported THRIVE Score: 0 AUDIT C Alcohol Use Questionnaire (AUDIT-C) 1. How often do you have a drink containing alcohol?: Never Total Score: 0 YOSEPH-7 AMB Questionnaire YOSEPH-7 Date YOSEPH - 7 assessed: 03/30/24 Feeling nervous, anxious, or on edge: 2 = More than half the days Not being able to stop or control worryin = Not at all Worrying too much about different things: 2 = More than half the days Trouble relaxin = Not at all Being so restless that it is hard to sit still: 0 = Not at all Becoming easily annoyed or irritable: 0 = Not at all Feeling afraid as if something awful might happen: 3 = Nearly every day Total YOSEPH-7 score (0-4 normal; 5-9 mild; 10-14 moderate; 15-21 severe): 7 Source: Developed by Drs. Seven White, Aaliyah Buckner, Donald Archibald and colleagues, with an educational [place] from [employer] YOSEPH-7 Assessment Billing YOSEPH-7 Assessment Tool: YOSEPH-7 Assessment 71534 Review of Systems Const All systems reviewed & are unremarkable except as noted in HPI and below Card Denies chest pain at rest, Denies chest pain with activity, Denies edema, Denies irregular heart rhythm, Denies claudication, Denies dyspnea, Denies dyspnea on exertion, Denies orthopnea, Denies paroxysmal nocturnal dyspnea and Denies slow heart rate Resp Denies cough, Denies dyspnea and Denies dyspnea on exertion GI Denies abdominal pain, Denies change in bowel habits, Denies excessive flatus, Denies nausea and Denies vomiting Denies urinary incontinence, Denies urinary hesitancy and Denies urinary urgency Musc Denies abnormal gait, Denies atrophy, Denies deformity and Denies limited range of motion Skin/Breast Denies bleeding lesions, Denies changing lesions and Denies rash Neuro Denies abnormal gait, Denies behavioral changes and Denies lack of coordination Psych Denies behavioral changes Physical exam (Primary Care) Vital Signs: Last Vital Signs BP 120/72 03/30/24 12:29 BMI result Body Mass Index 22.2 Tobacco/Smoking Status: Tobacco use Status Tobacco use date assessed 03/30/24 03/30/24 12:32 Patient Tobacco Use Status Former Tobacco user 03/30/24 12:59 Tobacco use type Cigarette 03/30/24 12:59 e-Cigarette/Vaping Use Currently Using 03/30/24 12:59 PHQ-9: PHQ-9 Score PHQ-9: Total score 4 03/30/24 12:56 Depression Screening Interpretation: Positive Depression Screening Follow-up: Existing condition, In treatment, Community Mental Health Worker F/U and Follow- up Visit Requested Thrive Assessment: Date of Thrive Assessment Date Thrive assessed 03/30/24 03/30/24 12:32 Currently or been in a relationship where the following occur: No concerns reported HENMT Head: Yes normal to inspection, Yes normocephalic and Yes atraumatic Ears: external ears normal Eyes General: appearance normal, both eyes and all related structures Eyelids: Yes eyelids normal Conjunctivae: conjunctivae normal Neck Neck: Yes normal visual inspection and Yes supple Resp Effort & Inspection: normal respiratory effort Auscultation: clear to auscultation bilaterally Cardio Jugular venous distension: no JVD Rate: regular rate Rhythm: regular rhythm Heart sounds: S1 normal heart sound present and S2 normal heart sound present GI Inspection: Yes normal to inspection Palpation (GI): Soft to palpation and nontender Auscultation: normal bowel sounds Skin General skin exam: no rashes or lesions noted Neuro General: no focal motor deficits Extrem General: Yes full ROM Psych Appearance: grossly normal Results AMB Hemoglobin A1c AMB Hemoglobin A1c 6.0 % Last Edit by ANDREW Fleming on 03/30/24 12:4 9 Results Reviewed Results Reviewed: Laboratory Last Values Hgb A1c (Clinic) 6.0 % (4.0-6.0) 03/30/24 12:29 Assessment and Plan Assessment & Plan (1) Annual physical exam: Code(s): Z00.00 - Encounter for general adult medical examination without abnormal findings Plan: Repeat in a year. (2) COPD (chronic obstructive pulmonary disease): Code(s): J44.9 - Chronic obstructive pulmonary disease, unspecified Plan: Continue long-acting inhaler. Use rescue inhaler as needed. (3) Mild recurrent major depression: Code(s): F33.0 - Major depressive disorder, recurrent, mild Plan: Continue SSRIs.. 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 A1c goal is equal or less than 7%. Orders: Orders XR DEXA axial skeleton Today N95.9 - Unspecified menopausal and perimenopausal disorder Lipid Panel Today E78.5 - Hyperlipidemia, unspecified Microalbumin, Random (w Creat) Today E11.9 - Type 2 diabetes mellitus without complications Comprehensive [place]. Panel Fast Today Z00.00 - Encounter for general adult medical examination without abnormal findings AMB Hemoglobin A1c Today E11.9 - Type 2 diabetes mellitus without complications Vitamin D 25-OH Total Today E55.9 - Vitamin D deficiency, unspecified Coding Level of Care Code Est Pt Prev Care >65y(56009) Diagnoses Annual physical exam Z00.00 COPD (chronic obstructive pulmonary disease) J44.9 Mild recurrent major depression F33.0 Type 2 diabetes mellitus without complication, without long-term current use of insulin E11.9 Diabetes mellitus type: type 2 Diabetes mellitus nursing home insulin use: without nursing home use Diabetes mellitus complication status: without complication Additional Codes YOSEPH-7 Assessment Billing - YOSEPH-7 Assessment Tool: YOSEPH-7 Assessment 13325 ([id number]) Time Spent (min) 30
== END 2024-03-30 13:04 | disposition home or self-care (01) ==
PROVIDERS: PCP Internal Medicine; Visit Provider Internal Medicine
DX: Z00.00 Encounter for general adult medical examination without abnormal findings (principal); J44.9 Chronic obstructive pulmonary disease, unspecified; F33.0 Major depressive disorder, recurrent, mild; E11.9 Type 2 diabetes mellitus without complications
CPT/HCPCS: 83036; 99397

== ENCOUNTER 2024-12-14 13:34 | Outpatient (AMB) | payer MEDICARE, MEDICAID, SELFPAY ==
[2024-12-14 13:55] VITALS: BP 120/70; BMI 22.4
--- NOTE | 2024-12-14 13:55 | A.OFFPC_ITS ---
Vital Signs 12/14/24 13:55 Height 4 ft 11 in Weight 111 lb BMI 22.4 BP 120/70 Blood Pressure Location Lt brachial Position Sitting Intake Visit Reasons: dm Intake Note: Patient here for a follow up DM Barrel Raiser Required: No Accompanied by: Self / Same As Patient Allergies aspirin [ASPIRIN] Allergy (Intermediate, Verified 12/14/24 14:13) SWELLING Penicillins [PENICILLINS] Allergy (Intermediate, Verified 12/14/24 14:13) SWELLING Medication List - Last Reconciled 12/14/24 by Caitlin Mcneill MD amlodipine 5 mg PO DAILY 90 days benztropine 0.5 mg PO BEDTIME blood sugar diagnostic (FreeStyle Lite Strips) Use 1 test strip once a day blood-glucose meter (FreeStyle Lite Meter kit) As directed cholecalciferol (vitamin D3) 25 mcg PO DAILY 90 days fenofibrate 54 mg PO DAILY 90 days fluoxetine 20 mg PO DAILY 90 days fluticasone propionate 220 mcg/actuation (Flovent HFA) 1 inh PO BID rkibrcydhob-advrwftqy-caecsadu 100-62.5-25 mcg (Trelegy Ellipta) 1 inh inhalation DAILY 60 days gabapentin 300 mg PO TID 90 days lancets (FreeStyle Lancets) Use 1 lancet once a day lisinopril 40 mg PO DAILY loratadine 10 mg PO DAILY metformin 500 mg PO DAILY 90 days methylcellulose (laxative) (Citrucel) 500 mg PO DAILY omeprazole 20 mg PO DAILY pioglitazone 15 mg PO DAILY 90 days prazosin 1 mg PO BEDTIME quetiapine 100 mg PO BEDTIME risperidone 0.25 mg PO DAILY sennosides (Natural Senna Laxative) 8.6 mg PO BEDTIME tramadol 50 mg PO Q8H PRN 30 days Ventolin HFA 90 mcg/actuation (albuterol sulfate) 2 puffs inhalation Q6H PRN 30 days NS Tobacco use date assessed: 12/14/24 Fall risk assessment: No Falls in past year Last assessed Fall Risk: 12/14/24 Dental Screening Dental Screen Date: 12/14/24 Did you have a dental visit in the last 12 months?: Yes Did you have a dental problem in the last 6 months where you did not have access to dental care?: No Was dental information given to patient?: Patient has dentist HPI HPI Comments History of Present Illness Details The patient is a 64-year-old female presenting with follow-up for her Type 2 Diabetes Mellitus managed with Metformin, and a controlled hemoglobin A1c of 6.1%. She experiences significant right hip pain, described as severe and requiring further evaluation with imaging. She reports consistent management of Chronic Obstructive Pulmonary Disease and asthma with inhalers. The history of Major Depressive Disorder with Anxiety continues to be managed with Fluoxetine. Concerns regarding neuropathy, treated with Gabapentin, are closely monitored. She experiences gastroesophageal reflux, managed with Omeprazole, and constipation on a fiber regimen. Her hyperlipidemia treatment consists of Fe nofibrate. The patient notes an eye lesion on the eyelid, requiring ophthalmological advice, and acknowledges missed preventive care for mammography and bone densitometry. She has a documented allergy to Penicillin and a history of smoking, though she has quit smoking and denies alcohol consumption. [facility] Medical History (Updated 12/14/24 @ 14:23 by Caitlin Mcneill MD) COPD (chronic obstructive pulmonary disease) Diabetes mellitus Right hip pain Mild recurrent major depression Hypertriglyceridemia Impaired glucose tolerance Back pain COPD (chronic obstructive pulmonary disease) Smoker Allergic rhinitis Depression GERD (gastroesophageal reflux disease) HTN (hypertension) Polyarthralgia Surgical History History of total abdominal hysterectomy No pertinent past surgical history Family History Mother No problems noted. Father No problems noted. Social History Housing: Apartment Alcohol intake: never Patient Tobacco Use Status: Former Tobacco user Tobacco use type: Cigarette Cigarettes Per Day: 4 e-Cigarette/Vaping Use: Currently Using Second Hand Smoke Exposure: No service: No Current occupational status: disabled Cognitive needs: No Hearing needs: No Vision needs: Yes Questionnaire PHQ-9 Over the last 2 weeks, how often have you been bothered by any of the following problems? 1. Little interest or pleasure in doing things: not at all 2. Feeling down, depressed, or hopeless: not at all 3. Trouble falling or staying asleep, or sleeping too much: not at all 4. Feeling tired or having little energy: not at all 5. Poor appetite or overeating: not at all 6. Feeling bad about yourself - or that you are a failure or have let yourself or your family down: not at all 7. Trouble concentrating on things, such as reading the newspaper or watching television: not at all 8. Moving or speaking so slowly that other people could have noticed. Or the opposite - being so fidgety or restless that you have been moving around a lot more than usual: not at all 9. Thoughts that you would be better off or of hurting yourself in some way: not at all Total score: 0 Depression Screening Interpretation: Negative Depression Screening Done: Yes 47186 - PHQ-9 Billing: Yes Source: Developed by Drs. Seven White, Aaliyah Buckner, Donald Archibald and colleagues, with an educational [place] from [employer]. Thrive Questionnaire Date Thrive assessed: 12/14/24 I am a: Patient What is your living situation today?: I have a steady place to live Within the past 12 months, did the food you bought not last and you didn't have the money to get more?: Never true Within the past 12 months, did you worry whether your food would run out before you got money to buy more?: Never true Do you have trouble paying for medicines?: No Do you have trouble getting transportation to medical appointments?: No Do you have trouble paying your heating and electricity bill?: No Do you have trouble taking care of your child, family member or friend?: No Do you have trouble with day-to-day activities such as bathing, preparing meals, shopping, managing finances, etc.?: No Are you currently unemployed and looking for a job?: No Are you interested in more education?: No Please select the resources that you would like help with: None Currently or been in a relationship where the following occur: No concerns reported THRIVE Score: 0 AUDIT C Alcohol Use Questionnaire (AUDIT-C) 1. How often do you have a drink containing alcohol?: Never Total Score: 0 Score Reviewed/Action Taken: No YOSEPH-7 AMB Questionnaire YOSEPH-7 Date YOSEPH - 7 assessed: 12/14/24 Feeling nervous, anxious, or on edge: 0 = Not at all Not being able to stop or control worryin = Not at all Worrying too much about different things: 0 = Not at all Trouble relaxin = Not at all Being so restless that it is hard to sit still: 0 = Not at all Becoming easily annoyed or irritable: 0 = Not at all Feeling afraid as if something awful might happen: 0 = Not at all Total YOSEPH-7 score (0-4 normal; 5-9 mild; 10-14 moderate; 15-21 severe): 0 Source: Developed by Drs. Seven White, Aaliyah Buckner, Donald Archibald and colleagues, with an educational ir[place]a from [employer]. YOSEPH-7 Assessment Billing YOSEPH-7 Assessment Tool: YOSEPH-7 Assessment 06842 Review of Systems Const All systems reviewed & are unremarkable except as noted in HPI and below Card Denies chest pain at rest, Denies chest pain with activity, Denies edema, Denies irregular heart rhythm, Denies claudication, Denies dyspnea, Denies dyspnea on exertion, Denies orthopnea, Denies paroxysmal nocturnal dyspnea and Denies slow heart rate Resp Denies cough, Denies dyspnea and Denies dyspnea on exertion GI Denies abdominal pain, Denies change in bowel habits, Denies excessive flatus, Denies nausea and Denies vomiting Denies urinary incontinence, Denies urinary hesitancy and Denies urinary urgency Musc Denies atrophy, Denies deformity and Denies limited range of motion Skin/Breast Denies bleeding lesions, Denies changing lesions and Denies rash Physical exam (Primary Care) Vital Signs: Last Vital Signs BP 120/70 12/14/24 13:55 BMI result Body Mass Index 22.4 Tobacco/Smoking Status: Tobacco use Status Tobacco use date assessed 12/14/24 12/14/24 14:04 Patient Tobacco Use Status Former Tobacco user 12/14/24 14:04 Tobacco use type Cigarette 12/14/24 14:04 e-Cigarette/Vaping Use Currently Using 12/14/24 14:04 PHQ-9: PHQ-9 Score PHQ-9: Total score 0 12/14/24 14:31 Depression Screening Interpretation: Negative Thrive Assessment: Date of Thrive Assessment Date Thrive assessed 12/14/24 12/14/24 14:04 Currently or been in a relationship where the following occur: No concerns reported Resp Effort & Inspection: normal respiratory effort Auscultation: clear to auscultation bilaterally Cardio Jugular venous distension: no JVD Rate: regular rate Rhythm: regular rhythm Heart sounds: S1 normal heart sound present and S2 normal heart sound present Extrem General: Yes full ROM Results AMB Hemoglobin A1c AMB Hemoglobin A1c 6.1 % Last Edit by ANDREW Fleming on 12/14/24 14:3 1 Results Reviewed Results Reviewed: Laboratory Last Values Hgb A1c (Clinic) 6.1 % (4.0-6.0) H 12/14/24 13:54 Coding Level of Care Code Est Pt Level 4 (09827) Complex EM visit Add On G2211 Diagnoses Right hip pain M25.551 Right foot pain M79.671 Eyelid lesion H02.9 Hyperlipidemia LDL goal <70 E78.5 Type 2 diabetes mellitus without complication, without long-term current use of insulin E11.9 Diabetes mellitus complication status: without complication Diabetes mellitus correction insulin use: without tank terminal gauger use Diabetes mellitus type: type 2 Mild recurrent major depression F33.0 COPD (chronic obstructive pulmonary disease) J44.9 HTN (hypertension) I10 Additional Codes YOSEPH-7 Assessment Billing - YOSEPH-7 Assessment Tool: YOSEPH-7 Assessment 14241 ([id number]) PHQ-9 - 82807 - PHQ-9 Billing: Yes ([id number]) Time Spent (min) 23 Assessment & Plan Assessment & Plan (1) Right hip pain: Code(s): M25.551 - Pain in right hip Category: Medical (2) Right foot pain: Code(s): M79.671 - Pain in right foot Category: Medical (3) Eyelid lesion: Code(s): H02.9 - Unspecified disorder of eyelid Category: Medical (4) Hyperlipidemia LDL goal <70: Code(s): E78.5 - Hyperlipidemia, unspecified Category: Medical (5) Diabetes mellitus: Code(s): E11.9 - Type 2 diabetes mellitus without complications Category: Medical Qualifiers: Diabetes mellitus complication status: without complication Diabetes mellitus correction insulin use: without correction use Diabetes mellitus type: type 2 Qualified Code(s): E11.9 - Type 2 diabetes mellitus without complications (6) Mild recurrent major depression: Code(s): F33.0 - Major depressive disorder, recurrent, mild Category: Medical (7) COPD (chronic obstructive pulmonary disease): Code(s): J44.9 - Chronic obstructive pulmonary disease, unspecified Category: Medical (8) HTN (hypertension): Code(s): I10 - Essential (primary) hypertension Category: Medical Plan For the patient's Type 2 Diabetes Mellitus, I will continue her current regimen of Metformin, given her controlled hemoglobin A1c level. An X-ray for right hip pain is planned to further evaluate the cause, with monitoring to decide if further referral is necessary. The patient's COPD and asthma are maintained with Flovent and Trelegy inhalers. Her depression and anxiety treatment with Fluoxetine will be regularly reviewed for effectiveness. Gabapentin will be adjusted as needed based on neuropathic symptom monitoring. The GERD will be managed with ongoing Omeprazole, supported by lifestyle changes. The patient continues Fenofibrate for hyperlipidemia. An tail board worker consultation is advised for the eyelid lesion for prompt evaluation. Missed preventive screenings such as the mammogram and bone density exams are to be completed. penicillin allergies necessitate caution in future medication prescriptions. Patient was informed and verbally consented to the use of an ambient scribe for clinic note documentation during this visit. During this consultation, we discussed the ongoing management of her Type 2 Diabetes Mellitus, emphasizing the importance of continued Metformin therapy and monitoring of blood sugar levels. The decision to proceed with an X-ray for her right hip pain was explained, considering her described symptoms and the lack of recent trauma. Her COPD and asthma management was reviewed, with reassurance regarding the effectiveness of current inhalers. The role of Fluoxetine in managing her depression and anxiety was reaffirmed. Gabapentin for neuropathy symptoms was discussed as a viable approach with flexibility for dose adjustment. We addressed the need for Omeprazole for GERD control and encouraged dietary adjustments for additional benefit. Hyperlipidemia treatment with Fenofibrate was reiterated, with regular lipid monitoring emphasized. Discussions included the need for ophthalmologic evaluation for the eyelid lesion and her preventive care deficits, recommending prompt completion of the mammogram and bone density assessment. We also discussed medication allergy awareness to Penicillin. I confirmed that the patient understands these plans and risks, and addressed her concerns about language barriers in healthcare settings. Orders: Orders AMB Hemoglobin A1c Today E11.9 - Type 2 diabetes mellitus without complications Vitamin D 25-OH Total Today E55.9 - Vitamin D deficiency, unspecified Lipid Panel Today E78.5 - Hyperlipidemia, unspecified Microalbumin, Random (w Creat) Today R80.9 - Proteinuria, unspecified Comprehensive Jackson. Panel Fast Today E11.9 - Type 2 diabetes mellitus without complications MM tomosynthesis screening BI Today Z12.31 - Encounter for screening mammogram for malignant neoplasm of breast XR foot RT 2V Today M79.671 - Pain in right foot XR DEXA axial skeleton Today Z78.0 - Asymptomatic menopausal state XR hip RT min 2V Today M25.551 - Pain in right hip Referrals Ophthalmology Referral H02.9 - Unspecified disorder of eyelid Pulmonology Referral J44.9 - Chronic obstructive pulmonary disease, unspecified Medications: Refilled amlodipine 5 mg PO DAILY 90 tabs 2RF 90 days pioglitazone 15 mg PO DAILY 90 tabs 2RF 90 days E11.9 - Type 2 diabetes mellitus without complications tramadol 50 mg PO Q8H PRN 90 tabs 0RF pain 30 days benztropine 0.5 mg PO BEDTIME 90 tabs 1RF Patient Instructions: - Continue taking Metformin as prescribed for diabetes management. - Schedule and complete X-ray for right hip evaluation. - Continue using prescribed inhalers for asthma and COPD management. - Take Fluoxetine as directed and monitor mental health symptoms. - Continue Gabapentin for neuropathy, report any changes in symptoms. - Use Omeprazole regularly for GERD and follow dietary recommendations. - Schedule and complete lipid testing and maintain Fenofibrate regimen. - Arrange an appointment with an tail board worker for eyelid evaluation. - Schedule mammogram and bone density test. - Report any new or worsening symptoms.
--- OUTSIDE RECORDS SUMMARY | 2024-12-14 16:38 | XMS_ITS | Clinical Summary ---
Author Organization [facility] Address [address] [place] [address] Care Team Providers Care Insurance Advisor Name Role Phone Hamida Foote CONSUELO Primary Care Provider [phone] Source Comments PLEASE NOTE, if this patient is a minor, it may be UNLAWFUL to discuss sensitive information that is contained in these records (such as FAMILY PLANNING, MENTAL HEALTH or SUBSTANCE ABUSE) with the minor patient's parent or other person without the patient's specific authorization.[facility] Allergies Active Allergy Reactions Criticality Noted Date Comments Aspirin Hives 03/18/2016 Penicillin Nausea and Vomiting 03/18/2016 Medications diclofenac (VOLTAREN) 1 % gelIndications:Pl july fasciitis of left foot Apply topically 2 (two) times daily. Apply to most painful area. 100 g 0 6 Active melatonin 10 mg tabIndications:In somnia, unspecified type Take 1 Tab by mouth once daily as needed (Insomnia) 30 Tab 3 7 Active acetaminophen (TYLENOL ARTHRITIS PAIN) 650 mg CR tabletIndications :Pain in multiple finger joints Take 1 Tab by mouth every 8 (eight) hours as needed for pain 30 Tab 3 7 Active lisinopril (PRINIVIL,ZESTRIL ) 40 mg tabletIndications :Essential hypertension Take 1 Tab by mouth once daily 30 Tab 3 7 Active omeprazole (PRILOSEC) [address] capsuleIndication s:Dyspepsia Take 1 Cap by mouth once daily 30 Cap 3 7 Active citalopram (CELEXA) 20 mg tabletIndications :Mild single current episode of major depressive disorder ([facility] V24) Take 1 Tab by mouth once daily 30 Tab 3 7 Active fluticasone (FLOVENT HFA) 220 mcg/actuation inhalerIndication s:Mild intermittent asthma without complication ([facility]HS-HCC) Inhale 2 Puffs into the lungs 2 (two) times daily 1 Inhaler 3 7 Active albuterol sulfate hfa 90 mcg/actuation inhalerIndication s:Vitamin D deficiency Inhale 2 Puffs into the lungs every 4 (four) hours as needed for wheezing 1 Inhaler 2 7 Active loratadine (CLARITIN) 10 mg tabletIndications :Mild intermittent asthma without complication ([facility]HS-HCC) Take 1 Tab by mouth once daily as needed for allergies 30 Tab 3 7 Active calcium carbonate-vitamin D3 600 mg(1,500mg) -400 unit tabletIndications :Vitamin D deficiency Take 1 Tab by mouth 2 (two) times daily 60 Tab 5 7 Active Active Problems Problem Noted Date Diagnosed Date Essential hypertension 03/29/2016 Immunizations Immunization Administration Dates Next Due Hep B, Adult/Adol (ENERGIX/RECOMBIVAX) 6,06/26/2016 INFLUENZA, SEASONAL, INJECTABLE 05/27/2016 Family History Medical History Relation Name Comments Depression Maternal Grandfather Relation Name Status Comments Brother Alive Father Maternal Grandfather Mother Alive Social History Tobacco Use Types Packs/Day Years Used Date Smoking Tobacco: Former Alcohol Use Standard Drinks/Week Comments No 0 (1 standard drink = 0.6 oz pur e alcohol) Social Connections Answer Date Recorded Social Connections and Isolation 0 04/23/2019 Financial Resource Strain Answer Date R ecorded Financial Resource Strain 0 2018 Stress Answer Date Recorded Stress 0 04/23/2019 Physical Activity Answer Date Recorded Physical Activity 0 04/23/2019 Food Insecurity Answer Date Recorded Food 0 04/23/2019 Transportation Needs Answer Date Record ed Transportation 0 04/23/2019 Housing Stability Answer Date Recorded Housing 0 04/23/2019 Safety and Environment Answer Date Jacob rded Safety 0 04/23/2019 Utilities Answer Date Recorded Utilities 0 04/23/2019 Employment Answer Date Recorded Employment 0 04/23/2019 Comments No Sex and Gender Information Value Date Recorded Sex Assigned at Not on file Legal Sex Female 9:19 AM PDT Gender Identity Not on file Sexual Orientation Not on file Last Filed Vital Signs Vital Sign Reading Time Taken Comments Blood Pressure 149/60 06/26/2016 10:54 AM EDT Pulse 72 06/26/2016 10:54 AM EDT Temperature 36.6 ??C (97.9 ??F) 06/26/2016 10:54 AM E DT Respiratory Rate 16 06/26/2016 10:54 AM EDT Oxygen Saturation 99% 03/18/2016 3:03 PM EDT Inhaled Oxygen Concentration - - Weight 53.8 kg (118 lb 9.6 oz) 06/26/2016 10:54 AM EDT Height 150.2 cm (4' 11.13 ) 05/27/2016 2:23 PM E DT Body Mass Index 23.85 05/27/2016 2:23 PM EDT Plan of Treatment Not on file Insurance [place] MEDICAID Care Teams Insurance Advisor Relationship Specialty Start Date End Date Hamida Foote FNP [address] [place] [id number] PCP - General Family Medicine, [employer] MANAGER 03/17/16
--- OUTSIDE RECORDS SUMMARY | 2024-12-14 16:38 | XMS_ITS | Clinical Summary ---
Author Organization [facility] Address [address] [place] [address] Care Team Providers Care Growth Media Mixer Mushroom Name Role Phone Unavailable Primary Care Provider Unavailabl e Allergies Active Allergy Reactions Criticality Noted Date Comments Aspirin 09/28/2019 Penicillins 09/28/2019 Medications Medication Sig Dispensed Refills Start Date End Date Status traMADol (ULTRAM) 50 MG tablet Take 50 mg by mouth every 8 (eight) hours as needed. 0 Active loratadine (CLARITIN) 10 MG tablet Take 10 mg by mouth daily. 0 Active prazosin (MINIPRESS) 1 MG capsule Take 1 mg by mouth every night at bedtime. 0 Active risperiDONE (RisperDAL) 0.25 MG tablet Take 0.25 mg by mouth every night at bedtime. 0 Active benztropine (COGENTIN) 0.5 MG tablet Take 0.5 mg by mouth every night at bedtime. 0 Active FLUoxetine (PROzac) 20 MG capsule Take 20 mg by mouth daily. 0 Active QUEtiapine (SEROquel) 100 MG tablet Take 100 mg by mouth every night at bedtime. 0 Active omeprazole (PriLOSEC) 20 MG capsule Take 20 mg by mouth daily. 0 Active amLODIPine (NORVASC) tablet 5 mg Take 5 mg by mouth daily. 0 Active gabapentin (NEURONTIN) 300 MG capsule Take 300 mg by mouth 3 (three) times a day. 0 Active albuterol (PROAIR HFA) 108 (90 Base) MCG/ACT inhaler Inhale 2 puffs into the lungs every 4 (four) hours as needed. 0 Active fluticasone (FLOVENT HFA) 220 MCG/ACT inhaler Inhale 1 puff into the lungs daily as needed. 0 Active Calcium Carbonate-Vitamin D (CALCIUM 600+D) 600-400 MG-UNIT per tablet Take 1 tablet by mouth daily. 0 Active lisinopril (PRINIVIL,ZESTRIL) tablet 40 mg Take 40 mg by mouth daily. 0 Active Active Problems Problem Noted Date Diagnosed Date Sepsis 09/28/2019 Family History Medical History Relation Name Comments Hypertension Father Heart disease Mother Relation Name Status Comments Father Mother Social History Tobacco Use Types Packs/Day Years Used Date Smoking Tobacco: Never Assessed Smokeless Tobacco: Never Sex and Gender Information Value Date Recorded Sex Assigned at Female 09/27/2019 9:56 PM EST Gender Identity Not on file Sexual Orientation Not on file Last Filed Vital Signs Vital Sign Reading Time Taken Comments Blood Pressure 133/78 09/29/2019 9:17 AM EST Pulse 110 09/29/2019 9:17 AM EST Temperature 37.2 ??C (99 ??F) 09/29/2019 9:17 AM EST Respiratory Rate 20 09/29/2019 9:17 AM EST Oxygen Saturation 97% 09/29/2019 9:17 AM EST Inhaled Oxygen Concentration - - Weight 54.3 kg (119 lb 11.4 oz) 09/27/2019 9:49 PM EST Height 152.4 cm (5') 09/27/2019 9:49 PM EST Body Mass Index 23.38 09/27/2019 9:49 PM EST Plan of Treatment Health Maintenance Due Date Last Done Comments Hepatitis C Screening 1960 COVID-19 Vaccine (#1) 05/28/1959 Depression Screening 1970 Preventative Health Evaluation 1976 DTap / Tdap / Td (1 - Tdap) 1977 Colon Cancer Screening (Colonoscopy) 11/26/2003 Breast Cancer Screening (Mammogram) 2008 Shingrix-Zoster Vaccine (1 of 2) 2008 Fall Risk Assessment 11/26/2023 Osteoporosis Screening (DEXA Scan) 11/26/2023 Pneumococcal Vaccine (1 of 1 - PCV) 11/26/2023 Influenza Vaccine (#1) 2024 RSV Adult > 60+ Yrs or Pregn ant (1 - 1-dose 75+ series) 2033 Hepatitis B Vaccines Aged Out No long er eligible based on patient's age to complete this topic RSV Ped < 20 months Aged Out No longe r eligible based on patient's age to complete this topic Advance Directives For more information, please contact: [phone] Latest Code Status on File Code Status Date Activated Date Inactivated Comments Full Code 09/28/2019 5:49 AM 09/29/2019 9:04 PM This code status was ascertained in the following way: discussion with patient .
--- OUTSIDE RECORDS SUMMARY | 2024-12-14 16:38 | XMS_ITS | Clinical Summary ---
Author Organization [facility] ity Address [address] [place] [address] Care Team Providers Care Third Rail Installer Name Role Phone Unavailable Primary Care Provider Unavailabl e Medical History Medical History Date Comments Depression DX:Depression Family History Medical History Relation Name Comments Hypertension Father Heart disease Mother Relation Name Status Comments Father Mother Social History Tobacco Use Types Packs/Day Years Used Date Smoking Tobacco: Never Assessed Smokeless Tobacco: Never Comments Unknown Sex and Gender Information Value Date Recorded Sex Assigned at Not on file Legal Sex Female 2:39 PM EST Gender Identity Not on file Sexual Orientation Not on file Obstetrics History Plan of Treatment Health Maintenance Due Date Last Done Comments Breast Cancer Screening 1960 DTaP,Tdap,and Td Vaccines (1 - Tdap) 1977 Pneumococcal Vaccine: 50+ Ye ars (1 of 1 - PCV) 2008 Zoster Vaccines (1 of 2) 2008 COVID-19 Vaccine ( - 2023-2 5 season) 2024 Colorectal Cancer Screening: Colonoscopy 06/06/2024 Depression Screening 06/06/2024 Falls Risk Assessment 06/06/2024 Hepatitis C Screening 06/06/2024 Osteoporosis Screening (Bone Density Screening) 06/06/2024 Social Influencers of Health Screening 06/06/2024 Influenza Vaccine (Season Ended) 2025 RSV Immunization Adult Patie nts (1 - 1-dose 75+ series) 2033 HIB Vaccines Aged Out No longer eligi ble based on patient's age to complete this topic HPV Vaccines Aged Out No longer eligi ble based on patient's age to complete this topic Hepatitis A Vaccines Aged Out No long er eligible based on patient's age to complete this topic Hepatitis B Vaccines Aged Out No long er eligible based on patient's age to complete this topic IPV Vaccines Aged Out No longer eligi ble based on patient's age to complete this topic MMR Vaccines Aged Out No longer eligi ble based on patient's age to complete this topic Meningococcal ACWY Vaccine Aged Out N o longer eligible based on patient's age to complete this topic Meningococcal B Vaccine Aged Out No l onger eligible based on patient's age to complete this topic RSV Immunization Patients Un rogers 20 months Aged Out No longer eligible b ased on patient's age to complete this topic Varicella Vaccines Aged Out No longer eligible based on patient's age to complete this topic
== END 2024-12-14 14:24 | disposition home or self-care (01) ==
LOC: HO.HMCH 13:35
PROVIDERS: PCP Internal Medicine; Visit Provider Internal Medicine
DX: M25.551 Pain in right hip (principal); E11.9 Type 2 diabetes mellitus without complications; F33.0 Major depressive disorder, recurrent, mild; J44.9 Chronic obstructive pulmonary disease, unspecified; M79.671 Pain in right foot; H02.9 Unspecified disorder of eyelid; E78.5 Hyperlipidemia, unspecified; I10 Essential (primary) hypertension

== ENCOUNTER → 2024-12-14 13:34 | Outpatient (BNVA) | payer MEDICARE, MEDICAID, SELFPAY | PROVIDERS: PCP Internal Medicine; Visit Provider Internal Medicine | DX: E11.9 Type 2 diabetes mellitus without complications (principal); M25.551 Pain in right hip; M79.671 Pain in right foot; H02.9 Unspecified disorder of eyelid; E78.5 Hyperlipidemia, unspecified; F33.0 Major depressive disorder, recurrent, mild; J44.9 Chronic obstructive pulmonary disease, unspecified; I10 Essential (primary) hypertension; K21.9 Gastro-esophageal reflux disease without esophagitis; Z79.84 Long term (current) use of oral hypoglycemic drugs; Z79.899 Other long term (current) drug therapy | CPT/HCPCS: 83036; 96127; 99212 ==

== ENCOUNTER 2025-02-06 13:15 | Outpatient (REF) | payer MEDICARE, MEDICAID, SELFPAY ==
--- NOTE | ~2025-02-06 | MM_ITS ---
EXAMINATION: DXA BONE DENSITY AXIAL HISTORY: Z78.0 - Asymptomatic menopausal state TECHNIQUE: [employer] Dual energy absorptiometry (DEXA) of the lumbar spine, total left hip, and femoral neck was performed. COMPARISON: There are no prior studies for comparison. FINDINGS: The bone mineral density of the lumbar spine is 1.190, corresponding to a T-score of 0.1, and a Z-score of 2.1. This is indicative of normal bone mineral density. The bone mineral density of the left total hip is 0.916, corresponding to a T-score of -0.7, and a Z-score of 0.8. This is indicative of normal bone mineral density. The bone mineral density of the left femoral neck is 0.874, corresponding to a T-score of -1.2, and a Z-score of 0.6. This is indicative of osteopenia. FRACTURE RISK: The FRAX index suggests a risk of major osteoporotic fracture of 4.5%, and of hip fracture 0.4%. MM/XR DEXA axial skeleton IMPRESSION: Based on bone mineral density, and according to World Health Organization (WHO) criteria, the diagnosis is consistent with osteopenia. All bone density values are in grams per centimeter squared (g/cm2). Statistically, 68% of repeat scans fall within 1 SD (+/- 0.010 g/cm2 for AP spine L1-L4) and 1 SD (+/- 0.012 g/cm2 for femur total) FRAX is a trademark of the [employer]'s [employer] Metabolic Bone Disease, a World Health Organization (WHO) Collaborating Center. Electronically signed by: Seven Hernández MD 02/06/2025 02:45 PM EDT
--- NOTE | ~2025-02-06 | MM_ITS ---
EXAMINATION: MM SCREENING DIGITAL BREAST TOMOSYNTHESIS, BILATERAL CLINICAL INFORMATION: Screening. Asymptomatic. COMPARISON: Mammography: Comparison is made with available priors TECHNIQUE: Digital breast mammography with tomosynthesis is performed in both the craniocaudal and mediolateral oblique views along with computer-aided detection (CAD). FINDINGS: There are scattered areas of fibroglandular density (ACR BI-RADS breast composition Category b). There are no significant masses, abnormal calcifications, or other abnormalities. MM/MM tomosynthesis screening BI IMPRESSION: No mammographic evidence of malignancy. ASSESSMENT: BI-RADS BI-RADS 1 - Negative RECOMMENDATION: Routine annual mammography screening. 1 year F/U This examination should not preclude the clinical evaluation of a suspicious palpable abnormality. This patient's information was entered into a reminder system with a target due date for their next mammogram. Electronically signed by: Saira Alonso DO 02/13/2025 03:59 PM EDT
--- OUTSIDE RECORDS SUMMARY | 2025-02-06 15:40 | XMS_ITS | Clinical Summary ---
Author Organization [facility] Address [address] [place] [address] Care Team Providers Care Actuarial Science Teacher Name Role Phone Unavailable Primary Care Provider [...] of 1 - PCV) 11/26/2023 Influenza Vaccine (Season Ended) 2025 RSV Adult > 60+ Yrs or Pregn ant (1 - 1-dose 75+ series) 2033 Hepatitis B Vaccines Aged Out No long er eligible based on patient's age to complete this topic RSV Ped < 20 months Aged Out No longe r eligible based on patient's age to complete this topic Advance Directives For more information, please contact: [phone] Latest Code Status on File Code Status Date Activated Date Inactivated Comments Full Code 09/28/2019 5:49 AM 09/29/2019 9:04 PM This code status was ascertained in the following way: discussion with patient .
== END 2025-02-06 13:16 | disposition home or self-care (01) ==
LOC: HO.MAMMO 13:15
PROVIDERS: PCP Internal Medicine; Visit Provider Internal Medicine
DX: Z12.31 Encounter for screening mammogram for malignant neoplasm of breast (principal); Z13.820 Encounter for screening for osteoporosis; Z78.0 Asymptomatic menopausal state
CPT/HCPCS: 77063; 77067; 77080

== ENCOUNTER → 2025-02-06 14:00 | Outpatient (BNV) | payer MEDICARE, MEDICAID, SELFPAY | PROVIDERS: PCP Internal Medicine; Visit Provider Radiology Diagnostic Radiology | DX: Z12.31 Encounter for screening mammogram for malignant neoplasm of breast (principal) | CPT/HCPCS: 77063; 77067 ==

== ENCOUNTER 2025-04-09 12:41 | Outpatient (AMB) | payer MEDICARE, MEDICAID, SELFPAY ==
--- OUTSIDE RECORDS SUMMARY | 2025-04-09 12:44 | XMS_ITS | Clinical Summary ---
Author Organization [facility] Address [address] [place] [address] Care Team Providers Care It Senior Software Engineer Java Name Role Phone Unavailable Primary Care Provider [...] 110 09/29/2019 9:17 AM EST Temperature 37.2 C (99 F) 09/29/2019 9:17 AM EST Respiratory Rate 20 [...] 1 - PCV) 11/26/2023 Influenza Vaccine (#1) 2025 RSV Adult > 60+ Yrs or Pregn ant (1 - 1-dose 75+ series) 2033 Hepatitis B Vaccines Aged Out No long er eligible based on patient's age to complete this topic RSV Ped < 20 months Aged Out No longe r eligible based on patient's age to complete this topic Advance Directives For more information, please contact: [phone] Latest Code Status on File Code Status Date Activated Date Inactivated Comments Full Code 09/28/2019 5:49 AM 09/29/2019 9:04 PM This code status was ascertained in the following way: discussion with patient .
--- OUTSIDE RECORDS SUMMARY | 2025-04-09 12:45 | XMS_ITS | Clinical Summary ---
Author Organization [facility] ity Address [address] [place] [address] Care Team Providers Care Agricultural Real Estate Agent Name Role Phone Unavailable Primary Care Provider [...] season) 2024 Colorectal Cancer Screening: Colonoscopy 06/06/2024 Falls Risk Assessment 06/06/2024 Hepatitis C Screening 06/06/2024 Osteoporosis Screening (Bone Density Screening) 06/06/2024 Social Influencers of Health Screening 06/06/2024 Depression Screening 08/30/2024 Influenza Vaccine (#1) 2025 RSV Immunization Adult Patie nts (1 [...]
--- OUTSIDE RECORDS SUMMARY | 2025-04-09 12:45 | XMS_ITS | Clinical Summary ---
Author Organization [facility] Address [address] [place] [address] Care Team Providers Care Correctional Supervising Cook Name Role Phone Hamida Foote CONSUELO Primary Care Provider [phone] Source Comments PLEASE NOTE, if this patient [...] single current episode of major depressive disorder (CMS-HCC V24) Take 1 Tab by mouth once [...] Administration Dates Next Due Hep B, Adult/Adol ([id number]/RECOMBIVAX-AD ULT) 07/27/2016,06/26/2016 INFLUENZA, SEASONAL, INJECTABLE 05/27/2016 Family History Medical [...] 72 06/26/2016 10:54 AM EDT Temperature 36.6 C (97.9 F) 06/26/2016 10:54 AM EDT Respiratory Rate 16 06/26/2016 10:54 AM EDT Oxygen Saturation 99% 03/18/2016 3:03 PM EDT Inhaled Oxygen Concentration - - Weight 53.8 kg (118 lb 9.6 oz) 06/26/2016 10:54 AM EDT Height 150.2 cm (4' 11.13 ) 05/27/2016 2:23 PM E DT Body Mass Index 23.85 05/27/2016 2:23 PM EDT Plan of Treatment Not on file Insurance ID MEDICAID Care Teams Correctional Supervising Cook Relationship Specialty Start Date End Date Hamida Foote FNP [address] [place] [address] PCP - General Family Medicine, BAILER TENDERS SUPERVISOR 03/17/16
[2025-04-09 12:55] VITALS: BP 122/72; PULSE 88; O2SAT 96; BMI 23.6
--- NOTE | 2025-04-09 12:55 | A.OFFVIS_ITS ---
Intake Vital Signs 04/09/25 12:55 Height 4 ft 11 in Weight 117 lb BMI 23.6 BP 122/72 Blood Pressure Location Lt brachial Position Sitting Pulse 88 Pulse Oximetry (%) 96 Intake Visit Reasons: AWV Cutting Machine Fixer Required: No Accompanied by: Self / Same As Patient Allergies aspirin (ASPIRIN) Allergy (Intermediate, Verified 04/09/25 13:19) SWELLING Penicillins (PENICILLINS) Allergy (Intermediate, Verified 04/09/25 13:19) SWELLING Medication List - Last Reconciled 04/09/25 by Caitlin Mcneill MD amlodipine 5 mg PO DAILY 90 days benztropine 0.5 mg PO BEDTIME blood sugar diagnostic (FreeStyle Lite Strips) Use 1 test strip once a day blood-glucose meter (FreeStyle Lite Meter kit) As directed cholecalciferol (vitamin D3) 25 mcg PO DAILY 90 days fenofibrate 54 mg PO DAILY 90 days fluoxetine 20 mg PO DAILY 90 days fluticasone propionate 220 mcg/actuation (Flovent HFA) 1 inh PO BID rylfctjisyp-hbyobgsne-kgsvitet 100-62.5-25 mcg (Trelegy Ellipta) 1 inh inhalation DAILY 60 days gabapentin 300 mg PO TID 90 days lancets (FreeStyle Lancets) Use 1 lancet once a day lisinopril 40 mg PO DAILY loratadine 10 mg PO DAILY metformin 500 mg PO DAILY 90 days methylcellulose (laxative) (Citrucel) 500 mg PO DAILY omeprazole 20 mg PO DAILY pioglitazone 15 mg PO DAILY 90 days prazosin 1 mg PO BEDTIME 90 days quetiapine 100 mg PO BEDTIME risperidone 0.25 mg PO DAILY sennosides (Natural Senna Laxative) 8.6 mg PO BEDTIME tramadol 50 mg PO Q8H PRN 30 days Ventolin HFA 90 mcg/actuation (albuterol sulfate) 2 puffs inhalation Q6H PRN 30 days NS HPI HPI Comments History of Present Illness Details Ppp handed to patient. [place] of care reviewed and updated. The patient is a 64-year-old female presenting with a Medicare wellness exam. She has diabetes mellitus type 2 and her A1c 6% today. Mild major depression follow by Psychiatry. She has COPD that has been stable. She received a pneumonia vaccine at 60 years old, with the next one due next year, and a Tdap vaccine in 2019, with the next one due in 2028. A bone density test conducted in January of this year revealed osteopenia, and she is currently on calcium and vitamin D supplementation as treatment. The patient underwent a mammogram this year, which returned negative results, and a colonoscopy in 2020, which was normal. She reports experiencing shortness of breath and edema, with the latter noted to have started approximately two weeks ago. She also has some allergic rhinitis on loratadine and I will change it to levocetirizine. Her medication regimen includes amlodipine, benztropine, vitamin D, fenofibrate, fluoxetine, gabapentin, lisinopril, metformin, loratadine, omeprazole, pioglitazone, prazosin, quetiapine, risperidone, senna, and tramadol. She has a history of hysterectomy and is scheduled for dental surgery next month to remove teeth. The patient has ceased smoking and does not engage in vaping. [facility] Medical History (Updated 04/09/25 @ 13:48 by Caitlin Mcneill MD) COPD (chronic obstructive pulmonary disease) Diabetes mellitus Right hip pain Mild recurrent major depression Hypertriglyceridemia Impaired glucose tolerance Back pain COPD (chronic obstructive pulmonary disease) Smoker Allergic rhinitis Depression GERD (gastroesophageal reflux disease) HTN (hypertension) Polyarthralgia Surgical History History of total abdominal hysterectomy No pertinent past surgical history Family History Mother No problems noted. Father No problems noted. Social History (Updated 04/09/25 @ 13:26 by Caitlin Mcneill MD) Housing: Apartment Alcohol intake: never Patient Tobacco Use Status: Former Tobacco user Tobacco use type: Cigarette Cigarettes Per Day: 4 Second Hand Smoke Exposure: No service: No Current occupational status: disabled Cognitive needs: No Hearing needs: No Vision needs: Yes Questionnaire Medicare Wellness Checkup What [age] 65-67 What gender do you identify with?: female During the past 4 weeks, how much have you been bothered by emotional problems such as feeling anxious, depressed, irritable, sad or downhearted, and blue?: slightly During the past 4 weeks, has your physical & emotional health limited your social activities with family, friends, neighbors, or groups?: moderately During the past 4 weeks, how much bodily pain have you generally had?: severe pain During the past 4 weeks, was someone available to help you if you needed & wanted help?: no, not at all During the past 4 weeks, what was the hardest physical activity you could do for at least 2 minutes?: heavy Can you get to places out of walking distance without help? (For eg., can you travel alone on buses, taxis or drive your car?): Yes Can you go shopping for groceries or clothes without someone's help?: No Can you prepare your own meals?: Yes Can you do your housework without help?: Yes Because of any health problems, do you need the help of another person with your personal care needs such as eating, bathing, dressing or getting around the house?: Yes Can you handle your own money without help?: Yes During the past 4 weeks, how would you rate your health in general?: good During the past 4 weeks how have things been going for you?: good & bad parts about equal Are you having difficulties driving your car?: no Do you always fasten your seat belt when you are in a car?: yes, usually During past 4 weeks, have you been bothered by the following: never: Sexual problems?, sometimes: Falling or dizzy when standing up, Problems using the telephone? and Tiredness or fatigue?, often: Trouble eating well? and always: Teeth or denture problems? Have you fallen 2 or more times in the past year?: No Are you afraid of falling?: No Are you a smoker?: no During the past 4 weeks, how many drinks of wine, beer, or other alcoholic beverages did you have?: no alcohol at all Do you exercise for about 20 minutes 3 or more times a week?: no, I usually do not exercise this much Have you been given information to help with the following?: yes: Keeping track of your medications? and no: Hazards in your house that might hurt you? How often do you have trouble taking medicines the way you have been told to take them?: I always take medicine as prescribed How confident are you that you can control & manage most of your health problems?: somewhat confident What is your race?: White Mini Mental State Exam (MMSE) Orientation What is the (year) (season) (date) (day) (month)?: year, season, date, day and month Where are we (state) (county) (town or city) (hospital) (floor)?: state, county, town or city, hospital/clinic and floor Registration Name of 3 unrelated objects clearly and slowly, then ask patient to repeat all 3 of them. (1st repeat determines score. Make sure they can repeat all three): object 1, object 2 and object 3 Attention & Calculation (CHOOSE ONE) Spell WORLD backwards (DLROW): 1 letter Recall Ask patient to repeat the 3 items from question #3.: object 1, object 2 and object 3 Language Show patient a wristwatch & ask what it is. Repeat for pencil.: watch and pencil Ask the patient to repeat the phrase 'No ifs, ands, or buts' after you.: correct Ask the patient to 'take a piece of paper with their right hand' 'fold paper in half' 'place paper on floor': take paper in right hand, fold paper in half and place paper on floor Print the sentence 'CLOSE YOUR EYES' on a piece. If patient actually closes eyes then score.: followed written direction Give patient a blank piece of paper & ask to write a sentence. Score if it contains a noun & verb.: sentence contains subject and verb Ask patient to copy figure of intersecting pentagons exactly. Score if all 10 angles & 2 intersects are included.: all 10 angles present & 2 are intersected Score Score: 26 Activity of Daily Living Bathing - sponge bath, tub bath or shower: receives no assistance (gets in/out by self, if usual bathing means Dressing - getting clothes from closets & drawers, including inner/outer garments & fasteners.: gets clothes & gets completely dressed without help Toileting - going to the 'toilet room' for urine/bowel elimination & cleaning self/arranging clothes: goes to toilet room, cleans self, arranges clothes without help Transfer: moves in & out of bed and chair without help (may use support object) Continence: has occasional 'accidents' Feeding: feeds self without help Total Score: 0 Information obtained from: patient Using telephone: independent Traveling: independent Shopping: dependent Preparing meals: independent Housework: independent Taking medicine: independent Managing money: independent PHQ-9 Over the last 2 weeks, how often have you been bothered by any of the following problems? 1. Little interest or pleasure in doing things: not at all 2. Feeling down, depressed, or hopeless: not at all 3. Trouble falling or staying asleep, or sleeping too much: not at all 4. Feeling tired or having little energy: not at all 5. Poor appetite or overeating: not at all 6. Feeling bad about yourself - or that you are a failure or have let yourself or your family down: not at all 7. Trouble concentrating on things, such as reading the newspaper or watching television: not at all 8. Moving or speaking so slowly that other people could have noticed. Or the opposite - being so fidgety or restless that you have been moving around a lot more than usual: not at all 9. Thoughts that you would be better off or of hurting yourself in some way: not at all Total score: 0 Depression Screening Interpretation: Negative Depression Screening Done: Yes 21520 - PHQ-9 Billing: Yes Source: Developed by Drs. Seven White, Aaliyah Buckner, Donald Archibald and colleagues, with an educational irlanda from [employer]. Review of Systems Const All systems reviewed & are unremarkable except as noted in HPI and below Card Denies chest pain at rest, Denies chest pain with activity, Denies edema, Denies irregular heart rhythm, Denies claudication, Denies dyspnea, Denies dyspnea on exertion, Denies orthopnea, Denies paroxysmal nocturnal dyspnea and Denies slow heart rate Resp Denies cough, Denies dyspnea and Denies dyspnea on exertion Neuro Denies confusion Psych Denies confusion Physical Exam Vital Signs: Last Vital Signs Pulse 88 04/09/25 12:55 BP 122/72 04/09/25 12:55 Pulse Ox 96 04/09/25 12:55 BMI result Body Mass Index 23.6 Const General: No confusion Orientation/consciousness: patient oriented x3 and No confusion Resp Effort & Inspection: normal respiratory effort Auscultation: clear to auscultation bilaterally Cardio Jugular venous distension: no JVD Rate: regular rate Rhythm: regular rhythm Heart sounds: Murmur heart sound present Neuro General: patient oriented x3, no focal motor deficits and No confusion Romberg Test: Negative Extrem General: Yes full ROM Right lower extremity: lower leg Details: pitting edema Details: 1+ Left lower extremity: lower leg Details: pitting edema Details: 1+ Assessment & Plan Assessment & Plan (1) Encounter for Medicare annual wellness exam: Code(s): Z00.00 - Encounter for general adult medical examination without abnormal findings (2) Mild recurrent major depression: Code(s): F33.0 - Major depressive disorder, recurrent, mild (3) Diabetes mellitus: Code(s): E11.9 - Type 2 diabetes mellitus without complications Qualifiers: Diabetes mellitus type: type 2 Diabetes mellitus consultant luxury and auto. vice president jaguar brand (ex ) insulin use: without senior care use Diabetes mellitus complication status: without complication Qualified Code(s): E11.9 - Type 2 diabetes mellitus without complications (4) COPD (chronic obstructive pulmonary disease): Code(s): J44.9 - Chronic obstructive pulmonary disease, unspecified (5) Leg edema: Code(s): R60.0 - Localized edema (6) Allergic rhinitis: Code(s): J30.9 - Allergic rhinitis, unspecified Plan The patient will continue with calcium and vitamin D supplementation to manage osteopenia. An ultrasound of the heart is planned to evaluate the cause of edema and shortness of breath. The patient is advised to follow up on her preventative care schedule, including the next pneumonia and Tdap vaccinations, as well as future bone density tests, mammograms, and colonoscopies. Patient was informed and verbally consented to the use of an ambient scribe for clinic note documentation during this visit. Orders: Orders Lipid Panel Today E78.5 - Hyperlipidemia, unspecified Vitamin B12 and Folate Today E53.8 - Deficiency of other specified B group vitamins Complete Blood Count Auto Diff Today R60.0 - Localized edema AMB Hemoglobin A1c Today E11.9 - Type 2 diabetes mellitus without complications Microalbumin, Random (w Creat) Today R80.9 - Proteinuria, unspecified Vitamin D 25-OH Total Today E55.9 - Vitamin D deficiency, unspecified NT-proBNP Today R60.0 - Localized edema CA echo transthoracic complete Today R01.1 - Cardiac murmur, unspecified, R06.09 - Other forms of dyspnea, R60.0 - Localized edema Quality Reporting (2019) Depression/Bipolar (159/160/161/177) PHQ-9: Total score: 0 Coding Level of Care Code Medicare First (G0438) Est Pt Level 3 (44802) Diagnoses Encounter for Medicare annual wellness exam Z00.00 Mild recurrent major depression F33.0 Type 2 diabetes mellitus without complication, without long-term current use of insulin E11.9 Diabetes mellitus type: type 2 Diabetes mellitus consultant luxury and auto. vice president jaguar brand (ex ) insulin use: without consultant luxury and auto. vice president jaguar brand (ex ) use Diabetes mellitus complication status: without complication COPD (chronic obstructive pulmonary disease) J44.9 Leg edema R60.0 Allergic rhinitis J30.9 CPT Codes Advance Care Planning - Time spent: 1-15 minutes, on File ([id number]) Additional Codes PHQ-9 - 43235 - PHQ-9 Billing: Yes ([id number]) Time Spent (min) 36 Advance Care Planning Advance Care Planning discussion: Exists, not on file Date of discussion: 04/09/25 Who was present: Patient and me Time spent: 1-15 minutes, on File Actual minutes spent: 1
== END 2025-04-09 13:38 | disposition home or self-care (01) ==
LOC: HO.HMCH 12:42
PROVIDERS: PCP Internal Medicine; Visit Provider Internal Medicine
DX: Z00.00 Encounter for general adult medical examination without abnormal findings (principal); E11.9 Type 2 diabetes mellitus without complications; J44.9 Chronic obstructive pulmonary disease, unspecified; F33.0 Major depressive disorder, recurrent, mild; R60.0 Localized edema; J30.9 Allergic rhinitis, unspecified

== ENCOUNTER → 2025-04-09 12:41 | Outpatient (BNVA) | payer MEDICARE, MEDICAID, SELFPAY | PROVIDERS: PCP Internal Medicine; Visit Provider Internal Medicine | DX: Z00.00 Encounter for general adult medical examination without abnormal findings (principal); F33.0 Major depressive disorder, recurrent, mild; E11.9 Type 2 diabetes mellitus without complications; J44.9 Chronic obstructive pulmonary disease, unspecified; R60.0 Localized edema; J30.9 Allergic rhinitis, unspecified | CPT/HCPCS: 96127; 99212 ==

== ENCOUNTER → 2025-05-18 12:32 | Outpatient (REF) | payer MEDICARE, MEDICAID, SELFPAY ==
--- NOTE | 2025-05-18 12:35 | CA_ITS ---
Transthoracic Echocardiogram Patient (Last, First, Middle): Michelle Ruiz, Gender: F Date of : 1960 Age: 64 Procedure Date: 05/18/2025 Procedure Type: Transthoracic Echocardiogram Location: OP Height: 149.86 cm Weight: 53.07 kg BSA: 1.47 m2 Heart Rate: 84 bpm BP: 122 / 72 mmHg Human Services Worker: SB Referring MD: Caitlin Mcneill MD Symptoms: R60.0 - Localized edema Study Quality: Adequate ECG Rhythm: Sinus Conclusions: - The left ventricular systolic function is normal. The calculated ejection fraction is 65% by biplane method. - No obvious valvular pathology seen on this study. Findings Procedure Information The quality of the study was technically difficult. The study quality is limited by lung artifact. Left Ventricle Normal left ventricular cavity size. There is normal left ventricular wall thickness. The left ventricular systolic function is normal. The calculated ejection fraction is 65% by biplane method. There is no evidence of regional wall motion abnormalities. Diastolic function is normal for age. Right Ventricle Normal right ventricular cavity size and systolic function. Atria Both atria are normal in size. Aortic Valve There is a normal trileaflet aortic valve. There is no aortic valve stenosis. There is no aortic valve regurgitation. Mitral Valve The mitral valve appears normal. There is no mitral valve regurgitation. There is no mitral valve stenosis. Pulmonic Valve The pulmonic valve is likely normal. Tricuspid Valve There is mild tricuspid valve regurgitation. Borderline RVSP. Great Vessels The asc aorta and aortic arch are normal in size. Venous The inferior vena cava is normal in size and collapses greater than 50% with inspiration. Pericardium/Pleural There is no evidence of pericardial effusion. Prior Study Comparison No prior study available for comparison. Recommendations, Care & Conclusions No obvious valvular pathology seen on this study. Measurements 2D Linear Measurements IVSd: 0.97 0.6-0.9/0.6-1.0 cm LVIDd: 3.90 3.9-5.3/4.2-5.9 cm LVIDd Index: 2.65 2.4-3.2/2.2-3.1 cm/m2 LVIDs: 1.96 2.0-3.6 cm LVPWd: 0.71 0.7-1.1 cm LA Diam: 3.30 2.7-3.8/3.0-4.0 cm LAIDs Index: 2.24 1.5-2.3 cm/m2 LV Mass: 119.10 67-162/88-224 g LV Mass Index: 81.02 43-95/49-115 g/m2 LVOT Diam: 1.60 3.0+(-)1.3 cm 2D Systolic Function EF 4C: 67.50 >55% EF 2C: 59.50 >55% EF BiP: 65.10 >55% Mitral Valve MV Pk E: 0.87 MV PK A: 0.94 MV Decel Time: 193.00 E/A: 0.90 E'Lateral: 7.62 E'Medial: 7.40 E/E' Med: 11.80 E/E' Lat: 11.40 PHT: 57.00 MVA PHT: 3.86 Decel [place]: 4.50 Aortic Valve AoV Pk Kelvin: 1.35 AoV Mn Kelvin: 0.86 AoV VTI: 0.27 AoV Pk Grad: 7.00 Aov Mn Grad: 3.00 ALEJANDRO Cont.VTI: 1.62 LVOT LVOT Pk Kelvin: 1.12 LVOT Mn Kelvin: 0.73 LVOT VTI: 0.22 LVOT Pk Grad: 5.00 LVOT Mn Grad: 3.00 LVOT Diam: 1.60 LVOT Area: 2.01 Diastolic Function MV Pk E: 0.87 MV Pk A: 0.94 E/A: 0.90 E'Medial: 7.40 E/E' Med: 11.80 E' Laterial: 7.62 E/E' Lat: 11.40 Right Ventricle TAPSE (mm): 19.90 TVS' Kelvin: 11.50 Tricuspid Valve TR Pk Kelvin: 2.88 TR Pk Grad: 33.00 RA Press: 3.00 RVSP: 36.00 Great Vessels Aorta Sinus of Valsalva: 2.60 2.0-3.5 cm Ao Asc: 2.80 2.1-3.4 cm Ao Arch: 2.80 Pulmonary Veins Pulm Vein S/D 1.50 Pulmonary Valve PV Pk Kelvin: 0.95 Peak PV Grad: 4.00 Updated in Other Vendor System with Status of Final Remberto Lovelace MD electronically signed on 05/19/2025 12:36:28 PM with status of Final
--- OUTSIDE RECORDS SUMMARY | 2025-05-18 12:35 | XMS_ITS | Clinical Summary ---
Author Organization [facility] Address [address] [place] [address] Care Team Providers Care Budget Consultant Name Role Phone Hamida Foote CONSUELO Primary Care Provider [phone] Source Comments PLEASE NOTE, if this patient [...] Administration Dates Next Due Hep B, Adult/Adol ([id number]/RECOMBIVAX-AD ULT) 07/27/2016,06/26/2016 INFLUENZA, SEASONAL, INJECTABLE 05/27/2016 Family [...] Plan of Treatment Not on file Insurance OR MEDICAID Care Teams Budget Consultant Relationship Specialty Start Date End Date Hamida Foote FNP [address] [place] [address] PCP - General Family Medicine, BLACK LEATHER BUFFER 03/17/16
--- OUTSIDE RECORDS SUMMARY | 2025-05-18 12:35 | XMS_ITS | Clinical Summary ---
Author Organization [facility] ity Address [address] [place] [address] Care Team Providers Care Cra Officer Name Role Phone Unavailable Primary Care Provider [...] 2008 Zoster Vaccines (1 of 2) 2008 Colorectal Cancer Screening: Colonoscopy 06/06/2024 Falls Risk Assessment 06/06/2024 Hepatitis C Screening 06/06/2024 Osteoporosis Screening (Bone Density Screening) 06/06/2024 Social Influencers of Health Screening 06/06/2024 Depression Screening 08/30/2024 COVID-19 Vaccine ( - 2023-2 5 season) 2025 Influenza Vaccine (#1) 2025 RSV Immunization Adult [...]
--- OUTSIDE RECORDS SUMMARY | 2025-05-18 12:35 | XMS_ITS | Clinical Summary ---
[facility] Organization [facility] Address [address] [place] [address] Care Team Providers Care Hand Potter Name Role Phone Unavailable Primary Care Provider [...] Advance Directives For more information, please contact: [phone] Latest Code Status on File Code Status Date Activated Date Inactivated Comments Full Code 09/28/2019 5:49 AM 09/29/2019 9:04 PM This code status was ascertained in the following way: discussion with patient .
== END ==
LOC: HO.CARD 12:32
PROVIDERS: PCP Internal Medicine; Visit Provider Internal Medicine
DX: R60.0 Localized edema (principal); R01.1 Cardiac murmur, unspecified; R06.09 Other forms of dyspnea
CPT/HCPCS: 93306

== ENCOUNTER → 2025-05-18 12:35 | Outpatient (BNV) | payer MEDICARE, MEDICAID, SELFPAY | PROVIDERS: PCP Internal Medicine; Visit Provider Internal Medicine | DX: I36.1 Nonrheumatic tricuspid (valve) insufficiency (principal); R60.0 Localized edema | CPT/HCPCS: 93306 ==

== ENCOUNTER 2025-06-27 10:01 | Outpatient (AMB) | payer MEDICARE, MEDICAID, SELFPAY ==
[2025-06-27 10:32] VITALS: BP 136/60; PULSE 94; O2SAT 93; BMI 24.7
--- NOTE | 2025-06-27 10:32 | MHC.OFFVIS ---
Vital Signs 06/27/25 10:32 Height 4 ft 11 in Weight 122 lb 5.705 oz BMI 24.7 BP 136/60 Blood Pressure Location Lt brachial Position Sitting Pulse 94 Pulse Source Pulse Oximeter Pulse Oximetry (%) 93 Oxygen Delivery Method Room Air Intake Visit Reasons: copd Bit Sharpener Required: Yes Bit Sharpener Services: Bit Sharpener Offered & Declined Bit Sharpener Name: MD speaks togolese Accompanied by: Spouse Allergies aspirin (ASPIRIN) Allergy (Intermediate, Verified 06/27/25 10:35) SWELLING Penicillins (PENICILLINS) Allergy (Intermediate, Verified 06/27/25 10:35) SWELLING HPI Comments Details: The patient is here for pulmonary evaluation. The patient is a 64 year woman with a known history of tobacco dependency COPD who presents with shortness of breath. The patient states that she does have shortness breath with activity. Moderate severity. She has been on Trelegy with good response and also has a rescue inhaler. She quit smoking about 2 years ago which is reassuring. Does not have any recent imaging to review. The patient does not have any PFTs. We did go for a walking oximetry the patient's pulse ox decreased to 92% and heart rate was 108. We did talk about the importance of exercising her life. She is going to start exercising. Will go ahead and refer her to the lung cancer screening program and the patient will undergo pulmonary function studies. She will follow-up in 4-6 months if she has any issues prior to this she will call for an earlier assessment [facility] Medical History (Updated 06/27/25 @ 10:59 by Dru Lee MD) Tobacco dependence Asthma-COPD overlap syndrome COPD (chronic obstructive pulmonary disease) Diabetes mellitus Right hip pain Mild recurrent major depression Hypertriglyceridemia Impaired glucose tolerance Back pain COPD (chronic obstructive pulmonary disease) Smoker Allergic rhinitis Depression GERD (gastroesophageal reflux disease) HTN (hypertension) Polyarthralgia Surgical History History of total abdominal hysterectomy No pertinent past surgical history Family History Mother No problems noted. Father No problems noted. Social History Housing: Apartment Alcohol intake: never Patient Tobacco Use Status: Former Tobacco user Tobacco use type: Cigarette Cigarettes Per Day: 4 Second Hand Smoke Exposure: No service: No Current occupational status: disabled Cognitive needs: No Hearing needs: No Vision needs: Yes Review of Systems Const All systems reviewed & are unremarkable except as noted in HPI and below Card Denies chest pain at rest, Denies chest pain with activity, Denies edema, Denies irregular heart rhythm, Denies claudication, Denies dyspnea, Denies dyspnea on exertion, Denies orthopnea, Denies paroxysmal nocturnal dyspnea and Denies slow heart rate Resp Denies cough, Denies dyspnea and Denies dyspnea on exertion Neuro Denies confusion Psych Denies confusion Physical Exam Vital Signs: Last Vital Signs Pulse 94 06/27/25 10:32 BP 136/60 06/27/25 10:32 Pulse Ox 93 06/27/25 10:32 Oxygen Delivery Method Room Air 06/27/25 10:32 BMI result Body Mass Index 24.7 Const General: No confusion Orientation/consciousness: No confusion Chest Chest palpation & inspection: normal inspection of the chest Resp Effort & Inspection: normal respiratory effort Auscultation: no wheezes and diminished lung sounds Cardio Rate: regular rate Rhythm: regular rhythm Heart sounds: Murmur heart sound present GI Palpation (GI): Soft to palpation Skin General skin exam: no rashes or lesions noted Neuro General: No confusion Romberg Test: Negative Extrem General: Yes no clubbing, cyanosis or edema Right lower extremity: lower leg Details: pitting edema Details: 1+ Left lower extremity: lower leg Details: pitting edema Details: 1+ Assessment & Plan Assessment & Plan (1) Asthma-COPD overlap syndrome: Code(s): J44.9 - Chronic obstructive pulmonary disease, unspecified Category: Medical (2) Tobacco dependence: Code(s): F17.200 - Nicotine dependence, unspecified, uncomplicated Category: Medical Plan PFTs LDCT referral continue Trelegy NARDA as needed Increase exercise, consider pulmonary rehab F/U 4-6 months Orders: Orders PFT pulmonary function test Today J44.9 - Chronic obstructive pulmonary disease, unspecified Referrals Lung Cancer Screening Referral F17.200 - Nicotine dependence, unspecified, uncomplicated Coding Level of Care Code New Pt Level 4 (23424) Diagnoses Asthma-COPD overlap syndrome J44.9 Tobacco dependence F17.200 Time Spent (min) 40
--- OUTSIDE RECORDS SUMMARY | 2025-06-27 12:10 | XMS_ITS | Clinical Summary ---
[facility] Address [address] [place] [address] Care Team Providers Care Estimating Manager Name Role Phone Unavailable Primary Care Provider [...] Advance Directives For more information, please contact: [phone] Latest Code Status on File Code Status Date Activated Date Inactivated Comments Full Code 09/28/2019 5:49 AM 09/29/2019 9:04 PM This code status was ascertained in the following way: discussion with patient .
--- OUTSIDE RECORDS SUMMARY | 2025-06-27 12:10 | XMS_ITS | Clinical Summary ---
Author Organization [facility] Address [address] [place] [address] Care Team Providers Care Bend Sorter Name Role Phone Unavailable Primary Care Provider [...] Last Done Comments Breast Cancer Screening 1960 Colorectal Cancer Screening: Colonoscopy 1960 DTaP,Tdap,and Td Vaccines (1 - Tdap) 1977 Pneumococcal Vaccine: 50+ Ye ars (1 of 1 - PCV) 2008 Zoster Vaccines (1 of 2) 2008 Falls Risk Assessment 06/06/2024 Hepatitis C Screening [...]
== END 2025-06-27 11:01 | disposition home or self-care (01) ==
PROVIDERS: PCP Internal Medicine; Visit Provider Hospitalist
DX: J44.9 Chronic obstructive pulmonary disease, unspecified (principal); F17.200 Nicotine dependence, unspecified, uncomplicated
CPT/HCPCS: 99204

== ENCOUNTER → 2025-06-27 10:01 | Outpatient (BNVA) | payer MEDICARE, MEDICAID, SELFPAY | PROVIDERS: PCP Internal Medicine; Visit Provider Hospitalist | DX: J44.9 Chronic obstructive pulmonary disease, unspecified (principal); F17.200 Nicotine dependence, unspecified, uncomplicated | CPT/HCPCS: 99202 ==

== ENCOUNTER 2025-08-13 13:04 | Outpatient (AMB) | payer MEDICARE, MEDICAID, SELFPAY ==
[2025-08-13 13:08] VITALS: BP 122/62; PULSE 86; TEMP 36.2; O2SAT 96; BMI 24.3
--- NOTE | 2025-08-13 13:08 | MHC.PC.OV ---
Vital Signs 08/13/25 13:08 Height 4 ft 11 in Weight 120 lb 4 oz BMI 24.3 BP 122/62 Blood Pressure Location Lt brachial Position Sitting Pulse 86 Pulse Source Pulse Oximeter Temp 97.1 F Temp Source Temporal Artery Scan Pulse Oximetry (%) 96 Oxygen Delivery Method Room Air Intake Visit Reasons: DM, Intake Note: Patient is here to follow up on DM. Data Entry Clerk Required: Yes Data Entry Clerk Language: Ghanaian Information Interpreted: non-clinical & clinical Senior Java Engineer: Not Required per policy Accompanied by: Self / Same As Patient Allergies aspirin (ASPIRIN) Allergy (Intermediate, Verified 08/13/25 13:36) SWELLING Penicillins (PENICILLINS) Allergy (Intermediate, Verified 08/13/25 13:36) SWELLING Medication List - Last Reconciled 08/13/25 by Caitlin Mcneill MD amlodipine 5 mg PO DAILY 90 days benztropine 0.5 mg PO BEDTIME blood sugar diagnostic (FreeStyle Lite Strips) Use 1 test strip once a day blood-glucose meter (FreeStyle Lite Meter kit) As directed cholecalciferol (vitamin D3) 25 mcg PO DAILY 90 days fenofibrate 54 mg PO DAILY 90 days fluoxetine 20 mg PO DAILY 90 days fluticasone propionate 220 mcg/actuation (Flovent HFA) 1 inh PO BID xaksopplvnz-rtgmhpgln-wteekhvi 100-62.5-25 mcg (Trelegy Ellipta) 1 inh inhalation DAILY 60 days gabapentin 300 mg PO TID 90 days lancets (FreeStyle Lancets) Use 1 lancet once a day lisinopril 40 mg PO DAILY loratadine 10 mg PO DAILY metformin 500 mg PO DAILY 90 days methylcellulose (laxative) (Citrucel) 500 mg PO DAILY omeprazole 20 mg PO DAILY pioglitazone 15 mg PO DAILY 90 days prazosin 1 mg PO BEDTIME 90 days quetiapine 100 mg PO BEDTIME risperidone 0.25 mg PO DAILY sennosides (Natural Senna Laxative) 8.6 mg PO BEDTIME tramadol 50 mg PO Q8H PRN 30 days Ventolin HFA 90 mcg/actuation (albuterol sulfate) 2 puffs inhalation Q6H PRN 30 days NS zolpidem 10 mg PO BEDTIME Tobacco use date assessed: 08/13/25 Fall risk assessment: No Falls in past year Last assessed Fall Risk: 08/13/25 Dental Screening Dental Screen Date: 12/14/24 HPI HPI Comments History of Present Illness Details The patient is a 64-year-old female presenting to address generalized bone pain. The bone pain is not necessarily worse in cold weather. The patient has a history of Type 2 diabetes mellitus, with a recent A1C of 6%. Her medical history also includes hypertension, which is reportedly well-controlled. She has a history of depression, which is also noted to be controlled. The patient has a known allergy to aspirin and penicillin. The patient sees a jetting machine operator, Dr. Lee, for her asthma-COPD and a psychiatrist for her mental health. A bone densitometry test in January showed osteopenia, not osteoporosis, and the next scan is due in 2026. She also underwent a mammogram in January. [facility] Medical History (Updated 08/13/25 @ 13:44 by Caitlin Mcneill MD) Tobacco dependence Asthma-COPD overlap syndrome COPD (chronic obstructive pulmonary disease) Diabetes mellitus Right hip pain Mild recurrent major depression Hypertriglyceridemia Impaired glucose tolerance Back pain COPD (chronic obstructive pulmonary disease) Smoker Allergic rhinitis Depression GERD (gastroesophageal reflux disease) HTN (hypertension) Polyarthralgia Surgical History History of total abdominal hysterectomy No pertinent past surgical history Family History Mother No problems noted. Father No problems noted. Social History Housing: Apartment Alcohol intake: never Patient Tobacco Use Status: Former Tobacco user Tobacco use type: Cigarette Cigarettes Per Day: 4 e-Cigarette/Vaping Use: Never Used Second Hand Smoke Exposure: Yes service: No Current occupational status: disabled Cognitive needs: No Hearing needs: No Vision needs: Yes Questionnaire Thrive Questionnaire Date Thrive assessed: 04/09/25 I am a: Patient What is your living situation today?: I have a steady place to live Within the past 12 months, did the food you bought not last and you didn't have the money to get more?: Never true Within the past 12 months, did you worry whether your food would run out before you got money to buy more?: Never true Do you have trouble paying for medicines?: No Do you have trouble getting transportation to medical appointments?: No Do you have trouble paying your heating and electricity bill?: No Do you have trouble taking care of your child, family member or friend?: No Do you have trouble with day-to-day activities such as bathing, preparing meals, shopping, managing finances, etc.?: No Are you currently unemployed and looking for a job?: No Are you interested in more education?: No Please select the resources that you would like help with: None Currently or been in a relationship where the following occur: No concerns reported THRIVE Score: 0 YOSEPH-7 AMB Questionnaire YOSEPH-7 Date YOSEPH - 7 assessed: 12/14/24 Source: Developed by Drs. Seven White, Aaliyah Buckner, Donald Archibald and colleagues, with an educational irlanda from [employer]. Review of Systems Const All systems reviewed & are unremarkable except as noted in HPI and below Card Denies chest pain at rest, Denies chest pain with activity, Denies edema, Denies irregular heart rhythm, Denies claudication, Denies dyspnea, Denies dyspnea on exertion, Denies orthopnea, Denies paroxysmal nocturnal dyspnea and Denies slow heart rate Resp Denies cough, Denies dyspnea and Denies dyspnea on exertion Physical exam (Primary Care) Vital Signs: Last Vital Signs Temp 97.1 F 08/13/25 13:08 Pulse 86 08/13/25 13:08 BP 122/62 08/13/25 13:08 Pulse Ox 96 08/13/25 13:08 Oxygen Delivery Method Room Air 08/13/25 13:08 BMI result Body Mass Index 24.3 Tobacco/Smoking Status: Tobacco use Status Tobacco use date assessed 08/13/25 08/13/25 13:18 Patient Tobacco Use Status Former Tobacco user 08/13/25 13:18 Tobacco use type Cigarette 08/13/25 13:18 e-Cigarette/Vaping Use Never Used 08/13/25 13:18 Thrive Assessment: Date of Thrive Assessment Date Thrive assessed 04/09/25 08/13/25 13:18 Currently or been in a relationship where the following occur: No concerns reported Resp Effort & Inspection: normal respiratory effort Auscultation: clear to auscultation bilaterally Cardio Jugular venous distension: no JVD Rate: regular rate Rhythm: regular rhythm Heart sounds: S1 normal heart sound present and S2 normal heart sound present Extrem General: Yes full ROM Results AMB Hemoglobin A1c AMB Hemoglobin A1c 6.0 % Last Edit by ANDREW Hernandez on 08/13/25 13:19 Results Reviewed Results Reviewed: Laboratory Last Values Hgb A1c (Clinic) 6.0 % (4.0-6.0) 08/13/25 13:07 Coding Level of Care Code Add On Preventative Visit Only Diagnoses Polyarthralgia M25.50 Primary hypertension I10 Hypertension type: primary hypertension Mild recurrent major depression F33.0 Hyperlipidemia LDL goal <70 E78.5 Type 2 diabetes mellitus without complication, without long-term current use of insulin E11.9 Diabetes mellitus type: type 2 Diabetes mellitus continuous churn buttermaker insulin use: without continuous churn buttermaker use Diabetes mellitus complication status: without complication Asthma-COPD overlap syndrome J44.9 Time Spent (min) 23 Assessment & Plan Assessment & Plan (1) Polyarthralgia: Code(s): M25.50 - Pain in unspecified joint Category: Medical (2) HTN (hypertension): Code(s): I10 - Essential (primary) hypertension Category: Medical Qualifiers: Hypertension type: primary hypertension Qualified Code(s): I10 - Essential (primary) hypertension (3) Mild recurrent major depression: Code(s): F33.0 - Major depressive disorder, recurrent, mild Category: Medical (4) Hyperlipidemia LDL goal <70: Code(s): E78.5 - Hyperlipidemia, unspecified Category: Medical (5) Diabetes mellitus: Code(s): E11.9 - Type 2 diabetes mellitus without complications Category: Medical Qualifiers: Diabetes mellitus type: type 2 Diabetes mellitus continuous churn buttermaker insulin use: without fci use Diabetes mellitus complication status: without complication Qualified Code(s): E11.9 - Type 2 diabetes mellitus without complications (6) Asthma-COPD overlap syndrome: Code(s): J44.9 - Chronic obstructive pulmonary disease, unspecified Category: Medical Plan Plan 1. Generalized Bone Pain The patient complains of generalized bone pain. Considering this may be due to a condition other than osteoarthritis, a referral to rheumatology will be placed for further evaluation. An x-ray will also be considered. 2. Type 2 Diabetes Mellitus The patient's A1C is 6%. The plan includes discontinuing pioglitazone 15 mg as it is deemed unnecessary. The patient will continue metformin once daily. 3. Hypertriglyceridemia Fenofibrate will be discontinued as the patient's triglycerides have never been 500 or higher, which is the typical threshold for this medication. 4. Asthma-COPD overlap syndrome Continue long-acting inhaler. Follow-up with pulmonology. Keep oxygen saturation over 90% at room air. Orders: Orders AMB Hemoglobin A1c Today E11.9 - Type 2 diabetes mellitus without complications Comprehensive [place]. Panel Fast Today I10 - Essential (primary) hypertension Lipid Panel Today E78.5 - Hyperlipidemia, unspecified Microalbumin, Random (w Creat) Today R80.9 - Proteinuria, unspecified Vitamin D 25-OH Total Today E55.9 - Vitamin D deficiency, unspecified Referrals Rheumatology Referral M25.50 - Pain in unspecified joint Medications: Refilled benztropine 0.5 mg PO BEDTIME 90 tabs 1RF gabapentin 300 mg PO TID 270 caps 1RF 90 days lisinopril 40 mg PO DAILY 90 tabs 2RF loratadine 10 mg PO DAILY 30 tabs 6RF tramadol 50 mg PO Q8H PRN 90 tabs 0RF pain 30 days amlodipine 5 mg PO DAILY 90 tabs 2RF 90 days metformin 500 mg PO DAILY 90 tabs 1RF 90 days E11.9 - Type 2 diabetes mellitus without complications omeprazole 20 mg PO DAILY 90 caps 0RF Discontinued pioglitazone Discontinued Reason: Patient Completed Course 15 mg PO DAILY 90 days 90 tabs 2RF E11.9 - Type 2 diabetes mellitus without complications fenofibrate Discontinued Reason: Patient Completed Course 54 mg PO DAILY 90 days 90 tabs 1RF
--- OUTSIDE RECORDS SUMMARY | 2025-08-13 19:03 | XMS_ITS | Clinical Summary ---
Author Organization [facility] Prior to 01/27/[address] [place] [address] Care Team Providers Care Manager Report Name Role Phone Unavailable Primary Care Provider [...] Advance Directives For more information, please contact: [phone] Latest Code Status on File Code Status Date Activated Date Inactivated Comments Full Code 09/28/2019 5:49 AM 09/29/2019 9:04 PM This code status was ascertained in the following way: discussion with patient .
--- OUTSIDE RECORDS SUMMARY | 2025-08-13 19:03 | XMS_ITS | Clinical Summary ---
Author Organization [facility] Address [address] [place] [address] Phone Care Team Providers Care Zinc Chloride Operator Name Role Phone Physician, No Pcp Primary Care Provider Unavaila ble Encounters Date Type Department Care Team Description 07/05/2025 1:15 PM EST Lab Draw Station - [address] [phone] Primary insomnia (Primary Dx); Major depressive disorder, recurrent episode, in full remission (CMS/HCC V24); Tobacco use disorder; Abnormal finding of blood chemistry, unspecified 07/05/2025 12:37 PM EST - 07/05/2025 11:59 PM EST Hospital Encounter [facility] Non-Invasive Cardiology [address] [place] [phone] Major depressive disorder, recurrent, in full remission (CMS/HCC V24); Primary insomnia; Nicotine dependence, unspecified, uncomplicated Discharge Disposition: Home or Self Care from Last 3 Months Medical History Medical History Date Comments Depression [...] on file Sexual Orientation Not on file Plan of Treatment Health Maintenance Due Date Last Done Comments Breast Cancer Screening 1960 Colorectal Cancer Screening: Colonoscopy 1960 Zoster Vaccines (1 of 2) 2008 Hepatitis B Vaccines (3 of 3 - 19+ 3-dose series) 12/25/2016 07/27/2016, 06/26/2016 Pneumococcal Vaccine: 50+ Years (2 of 2 - PCV) 03/18/2022 03/18/2021 Falls Risk Assessment 06/06/2024 Hepatitis C Screening 06/06/2024 Medicare Annual Wellness Visit 06/06/2024 Osteoporosis Screening (Bone Density Screening) 06/06/2024 Social Influencers of Health Screening 06/06/2024 Depression Screening 08/30/2024 COVID-19 Vaccine ( season) 2025 06/08/2025, 07/04/2023, 09/30/2021, Additional history exists Hypertension/CHF/CAD Annual BMP Blood Test 07/05/2026 07/05/2025, 09/29/2019, 09/29/2019, Additional history exists DTaP,Tdap,and Td Vaccines (2 - Td or Tdap) 04/17/2029 04/17/2019 Cholesterol Screening (Lipid Panel) 07/05/2030 07/05/2025 RSV Immunization Adult Patients (1 - 1-dose 75+ series) 2033 Influenza Vaccine Completed 06/08/2025, , 07/28/2022, Additional history exists HIB Vaccines Aged Out No longer eligi [...] to complete this topic RSV Immunization Patients Under 20 months Aged Out No longer eligible based on patient's age to complete this topic Varicella Vaccines Aged Out No longer eligible based on patient's age to complete this topic Procedures Procedure Name Priority Date/Time Associated Diagnosis Comments CBC WITH AUTO DIFFERENTIAL Routine 07/05/2025 1:15 PM EST Primary insomnia Major depressive disorder, recurrent episode, in full remission (CMS/HCC V24) Tobacco use disorder CBC AND DIFFERENTIAL Routine 07/05/2025 1:15 PM EST Primary insomnia Major depressive disorder, recurrent episode, in full remission [place] [place] Tobacco use disorder LIPID PANEL WITH REFLEX TO DIRECT LDL Routine 07/05/2025 1:15 PM EST Primary insomnia Major depressive disorder, recurrent episode, in full remission ([facility] V24) Tobacco use disorder Abnormal finding of blood chemistry, unspecified COMPREHENSIVE METABOLIC PANEL Routine 07/05/2025 1:15 PM EST Primary insomnia Major depressive disorder, recurrent episode, in full remission [place] [place] Tobacco use disorder ECG 12-LEAD Routine 07/05/2025 1:05 PM EST Major depressive disorder, recurrent, in full remission ([facility] [place]) Primary insomnia Nicotine dependence, unspecified, uncomplicated from Last 3 Months Results * Lipid panel with reflex to direct LDL (07/05/2025 1:15 PM EST) Cholesterol 172 0 - 200 mg/dL LAB CHEMISTRY METHOD 07/05/2025 3:[address] [facility] Triglycerides 89 0 - 150 mg/dL LAB CHEMISTRY METHOD 07/05/2025 3:[address] [facility] HDL 72 >=40 mg/dL LAB CHEMISTRY METHOD 07/05/2025 3:[address] [facility] LDL Calculated 82 0 - 100 mg/dL LAB CHEMISTRY METHOD 07/05/2025 3:[address] [facility] Comment:Estimated LDL Calcul ated using equation: Total cholesterol - HDL cholesterol - (Triglycerides/5) VLDL Cholesterol Jose R 17.8 mg/dL LAB CHEMISTRY METHOD 07/05/2025 3:[address] [facility] Non HDL Chol. (LDL+VLDL) 100 <145 mg/dL LAB CHEMISTRY METHOD 07/05/2025 3:[address] [facility] Chol/HDL Ratio 2.4 0.0 - 4.4 LAB CHEMISTRY METHOD 07/05/2025 3:[address] [facility] Blood Venous blood specimen / Unknown Venipuncture / Unknown 07/05/2025 1:15 PM EST 07/05/2025 1:40 PM EST us Bk Buckner TEXTILE ENGINEER LAB BLOOD ORDERABLES F inal Result [facility] [address] [place] [address], * (ABNORMAL) CBC auto differential (07/05/2025 1:15 PM EST) WBC 9.7 4.8 - 10.8 K/mcL LAB HEMETOLOGY METHOD 07/05/2025 1:[address] [facility] RBC 3.10(L) 3.80 - 4.80 M/mcL LAB HEMETOLOGY METHOD 07/05/2025 1:[address] [facility] Hemoglobin 9.6(L) 11.5 - 16.0 g/dL LAB HEMETOLOGY METHOD 07/05/2025 1:[address] [facility] Hematocrit 30.0(L) 35.0 - 47.0 % LAB HEMETOLOGY METHOD 07/05/2025 1:[address] [facility] MCV 96.8 79.0 - 98.0 FL LAB HEMETOLOGY METHOD 07/05/2025 1:[address] [facility] MCH 31.0 27.0 - 32.0 pcg LAB HEMETOLOGY METHOD 07/05/2025 1:[address] [facility] MCHC 32.0 32.0 - 37.0 g/dL LAB HEMETOLOGY METHOD 07/05/2025 1:[address] [facility] RDW 13.8 11.0 - 15.0 % LAB HEMETOLOGY METHOD 07/05/2025 1:[address] [facility] Platelets 387 130 - 400 K/mcL LAB HEMETOLOGY METHOD 07/05/2025 1:[address] [facility] MPV 9.2 7.0 - 11.0 FL LAB HEMETOLOGY METHOD 07/05/2025 1:[address] [facility] NRBC 0.0 <1.0 % LAB HEMETOLOGY METHOD 07/05/2025 1:[address] [facility] NRBC Absolute 0.00 <0.10 K/mcL LAB HEMETOLOGY METHOD 07/05/2025 1:[address] [facility] Neutrophils Relative 64.7 % LAB HEMETOLOGY METHOD 07/05/2025 1:[address] [facility] Lymphocytes Relative 26.0 % LAB HEMETOLOGY METHOD 07/05/2025 1:[address] [facility] Monocytes Relative 7.2 % LAB HEMETOLOGY METHOD 07/05/2025 1:[address] [facility] Eosinophils Relative 0.7 % LAB HEMETOLOGY METHOD 07/05/2025 1:[address] [facility] Basophils Relative 1.0 % LAB HEMETOLOGY METHOD 07/05/2025 1:[address] [facility] Immature Granulocytes Relative 0.4 % LAB HEMETOLOGY METHOD 07/05/2025 1:[address] [facility] Neutrophils Absolute 6.25 1.50 - 7.00 K/mcL LAB HEMETOLOGY METHOD 07/05/2025 1:[address] [facility] Lymphocytes Absolute 2.51 1.00 - 5.00 K/mcL LAB HEMETOLOGY METHOD 07/05/2025 1:[address] [facility] Monocytes Absolute 0.70 0.20 - 1.00 K/mcL LAB HEMETOLOGY METHOD 07/05/2025 1:[address] [facility] Eosinophils Absolute 0.07 0.00 - 0.50 K/mcL LAB HEMETOLOGY METHOD 07/05/2025 1:49 PM EST [facility] Basophils Absolute 0.10 0.00 - 0.20 K/[facility] LAB HEMETOLOGY METHOD 07/05/2025 1:49 PM EST [facility] Immature Granulocytes Absolute 0.04(H) 0.00 - 0.03 K/[facility] LAB HEMETOLOGY METHOD 07/05/2025 1:49 PM EST [facility] Blood Venous blood specimen / Unknown Venipuncture / Unknown 07/05/2025 1:15 PM EST 07/05/2025 1:41 PM EST us Bk Buckner TEXTILE ENGINEER LAB BLOOD ORDERABLES F inal Result [facility] [address] [place] [address], * (ABNORMAL) Comprehensive metabolic panel (07/05/2025 1:15 PM EST) Sodium 138 133 - 145 mmol/L LAB CHEMISTRY METHOD 07/05/2025 3:[address] [facility] Potassium 4.4 3.5 - 5.5 mmol/L LAB CHEMISTRY METHOD 07/05/2025 3:[address] [facility] Chloride 107 96 - 110 mmol/L LAB CHEMISTRY METHOD 07/05/2025 3:[address] [facility] CO2 29 21 - 32 mmol/L LAB CHEMISTRY METHOD 07/05/2025 3:[address] [facility] Anion Gap 2(L) 3 - 11 LAB CHEMISTRY METHOD 07/05/2025 3:[address] [facility] Glucose 106(H) 70 - 100 mg/dL LAB CHEMISTRY METHOD 07/05/2025 3:[address] [facility] BUN 27(H) 5 - 25 mg/dL LAB CHEMISTRY METHOD 07/05/2025 3:[address] [facility] Creatinine 1.41(H) 0.50 - 1.10 mg/dL LAB CHEMISTRY METHOD 07/05/2025 3:[address] [facility] eGFR 41(L) >=60 mL/min/1. 73m2 LAB CHEMISTRY METHOD 07/05/2025 3:[address] [facility] Comment:Calculation based on the Chronic Kidney Disease Epidemiology Collaboration (CKD-EPI) equation refit without adjustment for race. BUN/Creatinine Ratio 19.1 LAB CHEMISTRY METHOD 07/05/2025 3:[address] [facility] Calcium 9.8 8.5 - 10.5 mg/dL LAB CHEMISTRY METHOD 07/05/2025 3:[address] [facility] AST (SGOT) 16 10 - 42 unit/L LAB CHEMISTRY METHOD 07/05/2025 3:[address] [facility] ALT (SGPT) 21 10 - 60 unit/L LAB CHEMISTRY METHOD 07/05/2025 3:[address] [facility] Alkaline Phosphatase 84 42 - 121 unit/L LAB CHEMISTRY METHOD 07/05/2025 3:[address] [facility] Total Protein 7.2 6.0 - 8.0 g/dL LAB CHEMISTRY METHOD 07/05/2025 3:[address] [facility] Albumin 3.6 3.2 - 5.0 g/dL LAB CHEMISTRY METHOD 07/05/2025 3:[address] [facility] Total Bilirubin 0.2 0.0 - 1.4 mg/dL LAB CHEMISTRY METHOD 07/05/2025 3:[address] [facility] Blood Venous blood specimen / Unknown Venipuncture / Unknown 07/05/2025 1:15 PM EST 07/05/2025 1:40 PM EST us Bk Buckner TEXTILE ENGINEER LAB BLOOD ORDERABLES F inal Result [facility] [address] [place] [address], * ECG 12 lead (07/05/2025 1:05 PM EST) Ventricular Rate ECG 90 BPM G[facility] Atrial Rate 90 BPM GEMUSE P-R Interval 142 ms GEMUSE QRS Duration 60 ms GEMUSE Q-T Interval 342 ms GEMUSE QTc 418 ms GEMUSE P Wave [place] 60 degrees GEMUSE R [place] 2 degrees GEMUSE T [place] 24 degrees GEMUSE ECG Interpretation Normal sinus rhythm When compared with ECG of 28-APR-2024 11:11, No significant change was found Confirmed by TANNER DAVIDSON ([id number]) on 07/06/2025 8:19:25 AM GEMUSE 07/05/2025 1:05 PM EST 07/06/2025 8:19 AM EST us Bk Buckner TEXTILE ENGINEER ECG ORDERABLES Final Result [facility] from Last 3 Months Insurance MEDICAID - [place] MEDICARE Care Teams Zinc Chloride Operator Relationship Specialty Start Date End Date Physician, No Pcp PCP - General 07/05/25
== END 2025-08-13 13:55 | disposition home or self-care (01) ==
LOC: HO.HMCH 13:05
PROVIDERS: PCP Internal Medicine; Visit Provider Internal Medicine
DX: M25.50 Pain in unspecified joint (principal); I10 Essential (primary) hypertension; F33.0 Major depressive disorder, recurrent, mild; E78.5 Hyperlipidemia, unspecified; E11.9 Type 2 diabetes mellitus without complications; J44.9 Chronic obstructive pulmonary disease, unspecified

== ENCOUNTER → 2025-08-13 13:04 | Outpatient (BNVA) | payer MEDICARE, MEDICAID, SELFPAY | PROVIDERS: PCP Internal Medicine; Visit Provider Internal Medicine | DX: I10 Essential (primary) hypertension (principal); M25.50 Pain in unspecified joint; F33.0 Major depressive disorder, recurrent, mild; E78.5 Hyperlipidemia, unspecified; E11.9 Type 2 diabetes mellitus without complications; J44.9 Chronic obstructive pulmonary disease, unspecified | CPT/HCPCS: 83036; 99212 ==

== ENCOUNTER 2025-08-15 10:40 | Outpatient (REF) | payer MEDICARE, MEDICAID, SELFPAY ==
[2025-08-15 11:04] LABS: MANUAL DIFF FLAG NO
[2025-08-15 11:21] LABS: Hematocrit 30.3 % (37.0-47.0); Hemoglobin 9.7 g/dl (12.0-16.0); Imm Gran Abs Auto 0.03 X10*3/uL (0.00-0.03); Imm Gran Pct Auto 0.3 % (0.0-0.4); Lymphocytes Absolute Auto 2.1 X10*3/uL (1.2-4.9); Mean Corpuscular HGB Conc 32.0 g/dl (31.0-35.0); Mean Corpuscular Hemoglobin 30.8 pg (27.0-33.0); Mean Corpuscular Volume 96.2 fL (80.0-98.0); NRBC Abs Auto 0.000 X10*3/uL (0.0-0.012); NRBC Pct Auto 0.0 /100WBC (0.0-0.2); Platelet Count 339 X10*3/uL (160-400); Red Blood Count 3.15 X10*6/uL (4.20-5.50); White Blood Count 8.6 X10*3/uL (4.8-10.8)
[2025-08-15 11:55] LABS: Alanine Aminotransferase 13 U/L (0-31); Albumin Level 4.0 g/dL (3.5-5.0); Alkaline Phosphatase 64 U/L (39-117); Anion Gap 13 (12-20); Aspartate Amino Transferase 23 U/L (5-31); Blood Urea Nitrogen 26 mg/dL (9-16); Calcium 9.0 mg/dL (8.4-10.2); Carbon Dioxide 25 mmol/L (22-29); Chloride 108 mmol/L (96-108); Cholesterol 127 mg/dL (<200); Estimated Glomerular Filt Rate 30; HDL Cholesterol 49 mg/dL (>40); Potassium 4.0 mmol/L (3.3-5.1); Sodium 142 mmol/L (135-145); Total Protein 6.6 g/dL (6.5-8.0); Triglycerides 70 mg/dL (<150)
[2025-08-15 12:03] LABS: Microalbum/Creatinine Ratio Ur 6.3 ug/mg cr (<30)
[2025-08-15 12:30] LABS: Folate 6.5 ng/mL (> or = 4.0); Vitamin B12 239 pg/mL (200-900)
--- OUTSIDE RECORDS SUMMARY | 2025-08-15 13:37 | XMS_ITS | Clinical Summary ---
Author Organization [facility] Prior to 01/27/[address] [place] [id number] Care Team Providers Care Box Gluer Name Role Phone Unavailable Primary Care Provider [...] Advance Directives For more information, please contact: [phone] Latest Code Status on File Code Status Date Activated Date Inactivated Comments Full Code 09/28/2019 5:49 AM 09/29/2019 9:04 PM This code status was ascertained in the following way: discussion with patient .
--- OUTSIDE RECORDS SUMMARY | 2025-08-15 13:37 | XMS_ITS | Clinical Summary ---
Author Organization [facility] Address [address] [place] [address] Phone Care Team Providers Care Business Librarian Name Role Phone Physician, No Pcp Primary Care Provider Unavaila ble Encounters Date Type Department Care Team Description 07/05/2025 1:15 PM EST Lab Draw Station - [address] [phone] Primary insomnia (Primary Dx); Major depressive disorder, recurrent episode, in full remission (CMS/HCC V24); Tobacco use disorder; Abnormal finding of blood chemistry, unspecified 07/05/2025 12:37 PM EST - 07/05/2025 11:59 PM EST Hospital Encounter [facility] Non-Invasive Cardiology [address] [place] [phone] Major depressive disorder, recurrent, in full remission [...] depressive disorder, recurrent episode, in full remission ([facility] V24) Tobacco use disorder LIPID PANEL WITH REFLEX TO DIRECT LDL Routine 07/05/2025 1:15 PM EST Primary insomnia Major depressive disorder, recurrent episode, in full remission ([facility] V24) Tobacco use disorder Abnormal finding of blood chemistry, unspecified COMPREHENSIVE METABOLIC PANEL Routine 07/05/2025 1:15 PM EST Primary insomnia Major depressive disorder, recurrent episode, in full remission ([facility] V24) Tobacco use disorder ECG 12-LEAD Routine 07/05/2025 1:05 PM EST Major depressive disorder, recurrent, in full remission ([facility] V24) Primary insomnia Nicotine dependence, unspecified, uncomplicated from Last 3 Months Results * Lipid panel with reflex to direct LDL (07/05/2025 1:15 PM EST) Cholesterol 172 0 - 200 mg/dL LAB CHEMISTRY METHOD 07/05/2025 3:28 PM [facility] Triglycerides 89 0 - 150 mg/dL LAB CHEMISTRY METHOD 07/05/2025 3:28 PM [facility] HDL 72 >=40 mg/dL LAB CHEMISTRY METHOD 07/05/2025 3:28 PM [facility] LDL Calculated 82 0 - 100 mg/dL LAB CHEMISTRY METHOD 07/05/2025 3:28 PM [facility] Comment:Estimated LDL Calcul ated using equation: Total cholesterol - HDL cholesterol - (Triglycerides/5) VLDL Cholesterol Jose R 17.8 mg/dL LAB CHEMISTRY METHOD 07/05/2025 3:28 PM [facility] Non HDL Chol. (LDL+VLDL) 100 <145 mg/dL LAB CHEMISTRY METHOD 07/05/2025 3:28 PM [facility] Chol/HDL Ratio 2.4 0.0 - 4.4 LAB CHEMISTRY METHOD 07/05/2025 3:28 PM [facility] Blood Venous blood specimen / Unknown Venipuncture / Unknown 07/05/2025 1:15 PM EST 07/05/2025 1:40 PM EST us Bk Buckner SATURATOR TENDER LAB BLOOD ORDERABLES F inal Result [facility] [address] [place] [address], * (ABNORMAL) CBC auto differential (07/05/2025 1:15 PM EST) WBC 9.7 4.8 - 10.8 K/mcL LAB HEMETOLOGY METHOD 07/05/2025 1:49 PM [facility] RBC 3.10(L) 3.80 - 4.80 M/mcL LAB HEMETOLOGY METHOD 07/05/2025 1:49 PM [facility] Hemoglobin 9.6(L) 11.5 - 16.0 g/dL LAB HEMETOLOGY METHOD 07/05/2025 1:49 PM [facility] Hematocrit 30.0(L) 35.0 - 47.0 % LAB HEMETOLOGY METHOD 07/05/2025 1:49 PM [facility] MCV 96.8 79.0 - 98.0 FL LAB HEMETOLOGY METHOD 07/05/2025 1:49 PM [facility] MCH 31.0 27.0 - 32.0 pcg LAB HEMETOLOGY METHOD 07/05/2025 1:49 PM [facility] MCHC 32.0 32.0 - 37.0 g/dL LAB HEMETOLOGY METHOD 07/05/2025 1:49 PM [facility] RDW 13.8 11.0 - 15.0 % LAB HEMETOLOGY METHOD 07/05/2025 1:49 PM [facility] Platelets 387 130 - 400 K/mcL LAB HEMETOLOGY METHOD 07/05/2025 1:49 PM [facility] MPV 9.2 7.0 - 11.0 FL LAB HEMETOLOGY METHOD 07/05/2025 1:49 PM [facility] NRBC 0.0 <1.0 % LAB HEMETOLOGY METHOD 07/05/2025 1:49 PM [facility] NRBC Absolute 0.00 <0.10 K/mcL LAB HEMETOLOGY METHOD 07/05/2025 1:49 PM [facility] Neutrophils Relative 64.7 % LAB HEMETOLOGY METHOD 07/05/2025 1:49 PM [facility] Lymphocytes Relative 26.0 % LAB HEMETOLOGY METHOD 07/05/2025 1:49 PM [facility] Monocytes Relative 7.2 % LAB HEMETOLOGY METHOD 07/05/2025 1:49 PM [facility] Eosinophils Relative 0.7 % LAB HEMETOLOGY METHOD 07/05/2025 1:49 PM [facility] Basophils Relative 1.0 % LAB HEMETOLOGY METHOD 07/05/2025 1:49 PM [facility] Immature Granulocytes Relative 0.4 % LAB HEMETOLOGY METHOD 07/05/2025 1:49 PM [facility] Neutrophils Absolute 6.25 1.50 - 7.00 K/mcL LAB HEMETOLOGY METHOD 07/05/2025 1:49 PM [facility] Lymphocytes Absolute 2.51 1.00 - 5.00 K/mcL LAB HEMETOLOGY METHOD 07/05/2025 1:49 PM [facility] Monocytes Absolute 0.70 0.20 - 1.00 K/mcL LAB HEMETOLOGY METHOD 07/05/2025 1:49 PM [facility] Eosinophils Absolute 0.07 0.00 - 0.50 K/mcL LAB HEMETOLOGY METHOD 07/05/2025 1:49 PM EST [facility] Basophils Absolute 0.10 0.00 - 0.20 K/[facility] LAB HEMETOLOGY METHOD 07/05/2025 1:49 PM EST [facility] Immature Granulocytes Absolute 0.04(H) 0.00 - 0.03 K/[facility] LAB HEMETOLOGY METHOD 07/05/2025 1:49 PM EST [facility] Blood Venous blood specimen / Unknown Venipuncture / Unknown 07/05/2025 1:15 PM EST 07/05/2025 1:41 PM EST us Bk Buckner SATURATOR TENDER LAB BLOOD ORDERABLES F inal Result [facility] [address] [place] [address], * (ABNORMAL) Comprehensive metabolic panel (07/05/2025 1:15 PM EST) Sodium 138 133 - 145 mmol/L LAB CHEMISTRY METHOD 07/05/2025 3:35 PM [facility] Potassium 4.4 3.5 - 5.5 mmol/L LAB CHEMISTRY METHOD 07/05/2025 3:35 PM [facility] Chloride 107 96 - 110 mmol/L LAB CHEMISTRY METHOD 07/05/2025 3:35 PM [facility] CO2 29 21 - 32 mmol/L LAB CHEMISTRY METHOD 07/05/2025 3:35 PM [facility] Anion Gap 2(L) 3 - 11 LAB CHEMISTRY METHOD 07/05/2025 3:35 PM [facility] Glucose 106(H) 70 - 100 mg/dL LAB CHEMISTRY METHOD 07/05/2025 3:35 PM [facility] BUN 27(H) 5 - 25 mg/dL LAB CHEMISTRY METHOD 07/05/2025 3:35 PM [facility] Creatinine 1.41(H) 0.50 - 1.10 mg/dL LAB CHEMISTRY METHOD 07/05/2025 3:35 PM [facility] eGFR 41(L) >=60 mL/min/1. 73m2 LAB CHEMISTRY METHOD 07/05/2025 3:35 PM [facility] Comment:Calculation based on the Chronic Kidney Disease Epidemiology Collaboration (CKD-EPI) equation refit without adjustment for race. BUN/Creatinine Ratio 19.1 LAB CHEMISTRY METHOD 07/05/2025 3:35 PM [facility] Calcium 9.8 8.5 - 10.5 mg/dL LAB CHEMISTRY METHOD 07/05/2025 3:35 PM [facility] AST (SGOT) 16 10 - 42 unit/L LAB CHEMISTRY METHOD 07/05/2025 3:35 PM [facility] ALT (SGPT) 21 10 - 60 unit/L LAB CHEMISTRY METHOD 07/05/2025 3:35 PM [facility] Alkaline Phosphatase 84 42 - 121 unit/L LAB CHEMISTRY METHOD 07/05/2025 3:35 PM [facility] Total Protein 7.2 6.0 - 8.0 g/dL LAB CHEMISTRY METHOD 07/05/2025 3:35 PM [facility] Albumin 3.6 3.2 - 5.0 g/dL LAB CHEMISTRY METHOD 07/05/2025 3:35 PM [facility] Total Bilirubin 0.2 0.0 - 1.4 mg/dL LAB CHEMISTRY METHOD 07/05/2025 3:35 PM [facility] Blood Venous blood specimen / Unknown Venipuncture / Unknown 07/05/2025 1:15 PM EST 07/05/2025 1:40 PM EST us Bk Buckner SATURATOR TENDER LAB BLOOD ORDERABLES F inal Result [facility] [address] [place] [address], * ECG 12 lead (07/05/2025 1:05 PM EST) Ventricular Rate ECG 90 BPM GEMUSE Atrial Rate 90 BPM GEMUSE P-R Interval 142 ms GEMUSE QRS Duration 60 ms GEMUSE Q-T Interval 342 ms GEMUSE QTc 418 ms GEMUSE P Wave [place] 60 degrees GEMUSE R [place] 2 degrees GEMUSE T [place] 24 degrees GEMUSE ECG Interpretation Normal sinus rhythm When compared with ECG of 28-APR-2024 11:11, No significant change was found Confirmed by TANNER DAVIDSON ([id number]) on 07/06/2025 8:19:25 AM G[facility] 07/05/2025 1:05 PM EST 07/06/2025 8:19 AM EST us Bk Buckner SATURATOR TENDER ECG ORDERABLES Final Result [facility] from Last 3 Months Insurance [place] - [place] MEDICARE Care Teams Business Librarian Relationship Specialty Start Date End Date Physician, No Pcp PCP - General 07/05/25
== END 2025-08-15 10:41 | disposition home or self-care (01) ==
LOC: HO.LAB 10:40
PROVIDERS: PCP Internal Medicine; Visit Provider Internal Medicine
DX: E11.9 Type 2 diabetes mellitus without complications (principal); E55.9 Vitamin D deficiency, unspecified; E78.5 Hyperlipidemia, unspecified; E53.8 Deficiency of other specified B group vitamins; R60.0 Localized edema; R80.9 Proteinuria, unspecified
CPT/HCPCS: 36415; 80053; 80061; 82043; 82306; 82570; 82607; 82746; 85025